=== PATIENT | female | born 1945 | race Caucasian/White ===

== ENCOUNTER 2021-09-19 11:52 | Inpatient (IN) | payer OTHER, SELFPAY ==
[2021-09-19] VITALS (24 sets, daily range): BP systolic 83–133; BP diastolic 45–97; PULSE 75–90; RESP 14–20; TEMP 36.3–37.3; O2SAT 87–98; BMI 28.0
--- NOTE | ~2021-09-19 | CT_ITS ---
EXAMINATION: CT brain wo con INDICATION: Weakness and hypotension COMPARISON: 07/04/2019 TECHNIQUE: Standard unenhanced head CT. The dose-length product (DLP) was 681.00 mGy-cm. The mA was a djusted according to patient size. Iterative reconstruction technique was employed. FINDINGS: There is no acute intraparenchymal hemorrhage. No evidence of mass lesion. No evidence of a cute infarction. There is moderate periventricular and subcortical hypodensity probably related to sm all vessel ischemic disease. There is moderate prominence of the sulci and ventricles related to cere bral atrophy. Intracranial calcified cerebral atherosclerosis is noted. There are no extra-axial meryl ections. There is no mass effect or midline shift. Changes in the globes are likely from ocular lens surgery. The visualized sinuses and mastoid air cells are well aerated. IMPRESSION: 1. No acute intracranial abnormality. 2. Age related findings. Reviewed, dictated and finalized at location B. OSCIENCE DIRECTOR NA
--- NOTE | 2021-09-19 12:11 | ECG_ITS ---
Measurements Intervals Anita Rate: 80 P: 51 VT: 154 QRS: 23 QRSD: 90 T: 50 QT: 371 QTc: 430 Interpretive Statements SINUS RHYTHM BASELINE ARTIFACT NONSPECIFIC ST AND T-WAVE ABNORMALITY ANTERIOR AND INFERIOR LEADS BORDERLINE ECG COMPARED TO ECG 07/04/2019 16:23:11 NO SIGNIFICANT CHANGES Electronically Signed On 09-19-2021 14:18:19 [employer] COUN[employer]ED[employer] by Justo June M.D.
--- NOTE | 2021-09-19 12:35 | ED.GENADULT ---
HPI - General Adult General Chief complaint: Weakness Stated complaint: lethargy/hypotensive Time Seen by Provider: 09/19/21 12:10 Source: EMS and RN notes reviewed Mode of arrival: EMS Limitations: dementia History of Present Illness HPI narrative: Patient is a 76-year-old female brought in by EMS from the care home due to low blood pressure and lethargy. Upon arrival patient's blood pressure is 133/97, she is alert and awake and oriented x1. Patient is a poor historian due to her history of dementia. She denies chest pain, shortness of breath, abdominal pain, nausea, vomiting, diarrhea, fever or chills. Related Data Allergies Allergy/AdvReac Type Severity Reaction Status Date / Time DANIEL Inhibitors Allergy Severe Anaphylactic Verified 09/19/21 13:04 Shock Penicillins Allergy Unknown Other Verified 09/19/21 13:04 Review of Systems Review of Systems: All systems reviewed & are unremarkable except as noted in HPI and below ROS unobtainable: Yes other (Dementia) PMFSH Past Medical History Medical History Alzheimer disease Anemia Anxiety Arthritis CHF (congestive heart failure) COPD (chronic obstructive pulmonary disease) Dementia Depression DM (diabetes mellitus) GERD (gastroesophageal reflux disease) H/O: HTN (hypertension) History of degenerative joint disease History of GI bleed History of pneumonia Hx of esophagitis Hx of hemorrhoids Hx of hiatal hernia Hx of Parkinson's disease Hx of seizure disorder Hx of transient ischemic attack (TIA) Hx: UTI (urinary tract infection) Hypercholesteremia Hypothyroid Psychoses Schizo affective schizophrenia Surgical History Surgical History Surgical history unknown Social History Social History Smoking status: Smoker, status unknown Exam Const: General: comfortable, no acute distress, well developed, alert and awake Orientation/consciousness: oriented to person and No confusion Limitations: no limitations Other: Frail HENMT: Head: normal to inspection, normocephalic and atraumatic Ears: hearing grossly normal bilaterally, TM normal on the right and TM normal on the left General nose exam: Normal external nose present, Normal nares present and No nasal discharge present Face and sinus: normal facial exam Mouth: Yes Normal oral and palatal mucosa present, Yes lip normal, Yes tongue normal and Yes oropharynx normal Throat: posterior oropharynx normal, tonsils normal and uvula midline Eyes: General: appearance normal, both eyes and all related structures Pupils: Equal, round and reactive pupils present EOM: EOMs intact bilaterally Neck: Neck: normal visual inspection, full ROM, no lymphadenopathy and no meningeal signs Chest: Chest palpation & inspection: normal inspection of the chest Resp: Effort & Inspection: normal respiratory effort, able to speak in complete sentences, no respiratory distress and not tachypneic Auscultation: clear to auscultation bilaterally, no crackles, no rales, no rhonchi and no wheezes Cardio: Rate: regular rate Rhythm: regular rhythm GI: Inspection: normal to inspection GI Palp: No abdominal tenderness, Yes Soft to palpation, No Tenderness to palpation present (GI), No Guarding due to palpation present (GI), No Rigid due to palpation and No Rebound tenderness present Auscultation: normal bowel sounds Skin: General skin exam: normal color, elasticity normal and turgor normal Neuro: General: oriented to person, tone normal, moves all extremities, Normal light touch and pain sensation, no meningeal signs and no focal motor deficits Cranial nerves: Yes Equal, round and reactive pupils present Speech: No Abnormal speech present Sensory Exam: No Sensory deficit (Neuro) Extrem: General: normal to inspection, full ROM and capillary refill normal Psych: Appearanc
[2021-09-19 12:53] LABS: Basophils Percent Auto 0.4 % (0.2-1.2); Eosinophils Absolute Auto 0.2 K/mm3 (0-0.3); Eosinophils Percent Auto 1.9 % (0-4.4); Hematocrit 36.4 % (37.0-47.0); Hemoglobin 11.6 g/dL (12.0-15.0); Immature Granulocyte Absolute 0.04 K/mm3 (0.00-0.031); Immature Granulocyte Percent A 0.5 % (0-0.5); Lymphocytes Absolute Auto 1.61 K/mm3 (0.9-3.2); Lymphocytes Percent Auto 20.5 % (18.3-44.2); Mean Corpuscular HGB Conc 31.9 g/dl (32-36); Mean Corpuscular Hemoglobin 32.4 pg (26-34); Mean Corpuscular Volume 101.7 fl (80-100); Mean Platelet Volume 10.2 fl (7.4-10.4); Monocytes Absolute Auto 0.7 K/mm3 (0.1-0.6); Monocytes Percent Auto 8.3 % (2.6-8.5); Neutrophils Absolute Auto 5.4 K/mm3 (1.3-6.7); Neutrophils Percent Auto 68.4 % (45.5-73.1); Platelet Count Result 200 k/mm3 (150-375); Red Blood Count 3.58 M/mm3 (4.2-5.4); Red Cell Distribution Width 13.6 % (11.5-14.5); White Blood Count 7.9 K/mm3 (4.5-10.0)
[2021-09-19 13:02] LABS: Anion Gap 7 mmol/L (8-16); Blood Urea Nitrogen 26 mg/dL (7-17); Calcium 9.2 mg/dL (8.4-10.2); Carbon Dioxide 29 mmol/L (22-30); Chloride 107 mmol/L (98-107); Estimated Glomerular Filt Rate 44; Glucose 94 mg/dL (65-110); Potassium 3.5 mmol/L (3.4-5.0); Sodium 143 mmol/L (137-145)
[2021-09-19 13:07] LABS: Add Urine Microscopic? YES; Appearance Urine Turbid (Clear); Bacteria Urine 2+ /hpf; Bilirubin Urine Negative (Negative); Blood Urine 1+ (Negative); Color Urine Yellow (Yellow); Glucose Urine UA Negative (Negative); Ketones Urine Negative (Negative); Leukocyte Esterase Ur 2+ LEU/UL (Negative); Nitrate Urine Positive (Negative); Protein Urine 2+ mg/dL (Negative); RBC Urine 21-50 /hpf (0-2); Specific Grav Ur 1.016 (1.001-1.035); Urobilinogen Urine Negative mg/dL (<2.0); WBC Urine >75 /hpf
[2021-09-19] MEDS: SODIUM CHLORIDE 0.9% IV 1,000 ML 999 ML IV CONT (13:07)
[2021-09-19 13:15] LABS: Troponin I < 0.012 ng/mL (0.000-0.034)
--- NOTE | 2021-09-19 18:41 | ADMGEN ---
This patient, Iliana Gutierrez I, was admitted to 3 [facility] Surg Room 322-01 at 1635. Patient/family oriented to hospital policies and general routines including ID bracelet, bed and alarms, visiting hours, pain management, procedures, bathroom and other care routines, personal items, smoking policy, room service/diet, and visiting hours. Information on how to activate the Rapid Response Team has been discussed. Patient/Family are encouraged to report perceived risks to care and to ask questions if they do not understand what they are told or what they should do.
--- NOTE | 2021-09-19 20:22 | PM.IMHP ---
H&P: HPI History of Present Illness Date/Time: Patient was placed observation status for expected length of stay less than 23 hours for management, will plan to re-evaluate tomorrow for improvement. 09/19/21 20:22 Chief Complaint: Lethargy Narrative: Ms. Gutierrez there is a 76-year-old female who was sent to the emergency room from home for hypotension and lethargy. Patient has a well-known history of dementia and is alert oriented to self only. Patient also has a Parkinson's, diabetes mellitus, COPD, GERD, iron deficiency anemia, and CVA. On evaluation in emergency room patient was screaming at the staff, which is apparently baseline for patient. Patient had a straight catheterization performed and patient was noted to have a significant urinary tract infection. I am unable to get any type of history from patient or review of systems secondary to her clinical condition. Review of Systems Review of Systems: Unable to obtain review of systems secondary to patient underlying dementia and confusion. [facility] Past Medical History Medical History Alzheimer disease Anemia Anxiety Arthritis CHF (congestive heart failure) COPD (chronic obstructive pulmonary disease) Dementia Depression DM (diabetes mellitus) GERD (gastroesophageal reflux disease) H/O: HTN (hypertension) History of degenerative joint disease History of GI bleed History of pneumonia Hx of esophagitis Hx of hemorrhoids Hx of hiatal hernia Hx of Parkinson's disease Hx of seizure disorder Hx of transient ischemic attack (TIA) Hx: UTI (urinary tract infection) Hypercholesteremia Hypothyroid Psychoses Schizo affective schizophrenia Surgical History Surgical History Surgical history unknown Social History Social History Spiritual care concerns: No Meds Home Medications and Allergies Home Medications Medication Instructions Recorded Confirmed Type acetaminophen 09/19/21 History aspirin 09/19/21 History carbidopa-levodopa tablet 09/19/21 History divalproex PO 09/19/21 History docusate sodium [Colace] PO 09/19/21 History fenofibrate micronized mg 09/19/21 History ferrous sulfate mg PO 09/19/21 History furosemide 09/19/21 History levothyroxine 09/19/21 History memantine [Namenda XR] mg PO 09/19/21 History metformin mg 09/19/21 History mirtazapine mg 09/19/21 History potassium chloride meq PO 09/19/21 History primidone mg PO 09/19/21 History quetiapine 09/19/21 History Allergies Allergy/AdvReac Type Severity Reaction Status Date / Time DANIEL Inhibitors Allergy Severe Anaphylactic Verified 09/19/21 13:04 Shock Penicillins Allergy Unknown Other Verified 09/19/21 13:04 Vital Signs Vital Signs - 24 hr 09/19/21 11:56 09/19/21 12:03 09/19/21 12:05 Temperature 36.3 C L Pulse Rate 80 76 78 Respiratory Rate 18 15 18 Blood Pressure 133/97 H 107/89 Pulse Oximetry 98 09/19/21 13:14 09/19/21 13:15 09/19/21 13:17 Temperature Pulse Rate 80 78 78 Respiratory Rate 18 18 16 Blood Pressure 124/50 L Pulse Oximetry 98 97 98 09/19/21 13:30 09/19/21 13:31 09/19/21 13:45 Temperature Pulse Rate 78 78 81 Respiratory Rate 14 17 20 Blood Pressure 120/53 L Pulse Oximetry 09/19/21 13:47 09/19/21 13:48 09/19/21 14:00 Temperature Pulse Rate 81 79 86 Respiratory Rate 18 20 17 Blood Pressure 117/67 Pulse Oximetry 87 L 90 09/19/21 14:01 09/19/21 14:15 09/19/21 14:16 Temperature Pulse Rate 82 82 82 Respiratory Rate 17 14 15 Blood Pressure 115/46 L 122/58 L Pulse Oximetry 98 09/19/21 15:02 09/19/21 15:17 09/19/21 15:31 Temperature Pulse Rate Respiratory Rate Blood Pressure 112/45 L 83/66 L 108/54 L Pulse Oximetry 09/19/21 15:46 09/19/21 15:50 09/19/21 16:37 Temperature Pulse Rate Respiratory Rat
[2021-09-19] MEDS: LACTATED RINGERS 1,000 ML 100 ML IV CONT (20:40)
[2021-09-20 00:52] VITALS: BP 109/54; PULSE 76; RESP 18; TEMP 36.2; O2SAT 95
[2021-09-20 05:36] VITALS: BP 122/57; PULSE 80; RESP 16; TEMP 36.7; O2SAT 95
--- NOTE | 2021-09-20 10:00 | PM.IMPN ---
Progress Note: A&P Assessment and Plan (1) Urinary tract infection: Qualifiers: Hematuria presence: without hematuria Urinary tract infection type: site unspecified Qualified Code(s): N39.0 - Urinary tract infection, site not specified Code(s): N39.0 - Urinary tract infection, site not specified Status: Acute Assessment and Plan: Urinalysis: Turbid,yellow, 2+ proteins, 1+ Blood, Nitrate positives, Leukocyte esterase 2+, WBC >75, Bacteria 2+ Continue IV Rocephin Urine culture pending Tailor antibiotics to culture results Trend urine output (2) Hypotension: Qualifiers: Hypotension type: unspecified hypotension type Qualified Code(s): I95.9 - Hypotension, unspecified Code(s): I95.9 - Hypotension, unspecified Status: Acute Assessment and Plan: BP 86/62 in the ed IV fluids given Does not seem to be on antihypertensives Trend BP Adjust therapy as indicated (3) Acute kidney injury: Code(s): N17.9 - Acute kidney failure, unspecified Status: Acute Assessment and Plan: Current BUN/Cr 23/1.20 baseline creatinine is 1.0 Could be secondary to acute tubular necrosis from hypotensive state and urinary tract infection gently hydrate patient Trend BUN and creatinine Avoid nephrotoxic medications (4) Acute metabolic encephalopathy: Code(s): G93.41 - Metabolic encephalopathy Status: Acute Assessment and Plan: Alzheimer and dementia at baseline Head Ct no acute intracranial abnormalities Seems to be at baseline this am Probably secondary to urinary tract infection IV antibiotics and hydration on board Trend mental status (5) Alzheimer's dementia: Code(s): G30.9 - Alzheimer's disease, unspecified; F02.80 - Dementia in other diseases classified elsewhere without behavioral disturbance Status: Acute Assessment and Plan: Continue namenda, Remeron, Seroquel Seems patient might have a little bit of Behavioral episodes however have not seen that Trend moods and behaviors Adjust therapy if indicated (6) Seizures: Code(s): R56.9 - Unspecified convulsions Status: Acute Assessment and Plan: Continue divalproex Trend for activity Time Spent With Patient Time with patient: Greater than 35 minutes Subjective Date/time seen: 09/20/21 1000 Interval history: 09/19/21 20:22 Narrative: Ms. Gutierrez there is a 76-year-old female who was sent to the emergency room from home for hypotension and lethargy. Patient has a well-known history of dementia and is alert oriented to self only. Patient also has a Parkinson's, diabetes mellitus, COPD, GERD, iron deficiency anemia, and CVA. On evaluation in emergency room patient was screaming at the staff, which is apparently baseline for patient. Patient had a straight catheterization performed and patient was noted to have a significant urinary tract infection. I am unable to get any type of history from patient or review of systems secondary to her clinical condition. Date/Time 09/20/21 1000 Patient was little raven today. She did tell me her name however she told me that she was at the hospital she stated that she has no pain and she is not having any other issues however not sure how reliable that is due to the patient's advanced dementia. Complete review of systems is able to be obtained due to patient's mental status Review of Systems Review of Systems: All systems reviewed & are unremarkable except as noted in HPI and below Exam Const: General: cooperative, no acute distress, well developed, alert, awake and tired appearing Nutritional Appearance: well nourished and overweight Orientation/consciousness: oriented to person and confusion Limitations: altered mental status HENMT: Head: normal to inspection Ears: hearing grossly normal bilaterally General nose exam: Normal
--- NOTE | 2021-09-20 10:00 | P.PNIM_ITS ---
Progress Note: A&P Assessment and Plan (1) Urinary tract infection: Qualifiers: Hematuria presence: without hematuria Urinary tract infection type: site unspecified Qualified Code(s): N39.0 - Urinary tract infection, site not specified Code(s): N39.0 - Urinary tract infection, site not specified Status: Acute Assessment and Plan: * Urinalysis: Turbid,yellow, 2+ proteins, 1+ Blood, Nitrate positives, Leukocyte esterase 2+, WBC >75, Bacteria 2+ * Continue IV Rocephin * Urine culture pending * Tailor antibiotics to culture results * Trend urine output (2) Hypotension: Qualifiers: Hypotension type: unspecified hypotension type Qualified Code(s): I95.9 - Hypotension, unspecified Code(s): I95.9 - Hypotension, unspecified Status: Acute Assessment and Plan: * BP 86/62 in the ed * IV fluids given * Does not seem to be on antihypertensives * Trend BP * Adjust therapy as indicated (3) Acute kidney injury: Code(s): N17.9 - Acute kidney failure, unspecified Status: Acute Assessment and Plan: * Current BUN/Cr 23/1.20 * baseline creatinine is 1.0 * Could be secondary to acute tubular necrosis from hypotensive state and urinary tract infection * gently hydrate patient * Trend BUN and creatinine * Avoid nephrotoxic medications (4) Acute metabolic encephalopathy: Code(s): G93.41 - Metabolic encephalopathy Status: Acute Assessment and Plan: * Alzheimer and dementia at baseline * Head Ct no acute intracranial abnormalities * Seems to be at baseline this am * Probably secondary to urinary tract infection * IV antibiotics and hydration on board * Trend mental status (5) Alzheimer's dementia: Code(s): G30.9 - Alzheimer's disease, unspecified; F02.80 - Dementia in other diseases classified elsewhere without behavioral disturbance Status: Acute Assessment and Plan: * Continue namenda, Remeron, Seroquel * Seems patient might have a little bit of Behavioral episodes however have not seen that * Trend moods and behaviors * Adjust therapy if indicated (6) Seizures: Code(s): R56.9 - Unspecified convulsions Status: Acute Assessment and Plan: * Continue divalproex * Trend for activity Time Spent With Patient Time with patient: Greater than 35 minutes Subjective Date/time seen: 09/20/21 1000 Interval history: 09/19/21 20:22 Narrative: Ms. Gutierrez there is a 76-year-old female who was sent to the emergency room from home for hypotension and lethargy. Patient has a well-known history of dementia and is alert oriented to self only. Patient also has a Parkinson's, diabetes mellitus, COPD, GERD, iron deficiency anemia, and CVA. On evaluation in emergency room patient was screaming at the staff, which is apparently baseline for patient. Patient had a straight catheterization performed and patient was noted to have a significant urinary tract infection. I am unable to get any type of history from patient or review of systems secondary to her clinical condition. Date/Time 09/20/21 1000 Patient was little soumyay today. She did tell me her name however she told me that she was at the hospital she stated that she has no pain and she is not having any other issues however not sure how reliable that is due to the patient's advanced dementia. Complete review of systems is able to be obtained
[2021-09-20] MEDS: ENOXAPARIN 40 MG/0.4 ML SYRINGE SUB-Q (10:15)
[2021-09-20 11:50] LABS: Glucose Point of Care 83 mg/dl (65-105)
[2021-09-20 11:52] VITALS: BP 104/42; PULSE 80; RESP 20; TEMP 36.1; O2SAT 92
[2021-09-20 13:46] LABS: Glucose Point of Care 88 mg/dl (65-105)
[2021-09-20 14:00] VITALS: BP 116/58; PULSE 82; RESP 18; TEMP 35.8; O2SAT 95
[2021-09-20] MEDS: LACTATED RINGERS 1,000 ML 100 ML IV CONT (15:19)
--- NOTE | 2021-09-20 15:33 | PC.NURSE ---
Attempted to give pt her meds that were newly prescribed. Pt was belligerent from the moment I walked into her room before I could even utter a word. She was cursing at me, calling me lennox names, and ordered me to get the hell out of here! I attempted to explain to pt that I needed to give her medications that would make her feel better. I tried to pass the meds in applesauce and/or pudding but pt continued with the lennox comments. Pt continued to be belligerent, adamantly refusing to take the meds no matter how presented. The ORNAMENTAL METAL WORKER informed me that pt pocketed her lunch in the sides of pt's mouth and was belligerent with her as well.
[2021-09-20 16:00] VITALS: BP 111/57; PULSE 74; RESP 18; TEMP 35.8; O2SAT 96
[2021-09-20 16:21] LABS: Glucose Point of Care 103 mg/dl (65-105)
[2021-09-20] MEDS: CARBIDOPA/LEVODOPA 10/100 MG TABLET 1 TABLET PO (17:00)
[2021-09-20] MEDS: PRIMIDONE 250 MG TABLET PO (17:00)
[2021-09-20] MEDS: DOCUSATE SODIUM 100 MG CAPSULE PO (17:00)
[2021-09-20] MEDS: FERROUS SULFATE 324 MG TABLET PO (17:00)
[2021-09-20] MEDS: DIVALPROEX SODIUM SPRINKLE 125 MG CAP.DR PO (17:00)
[2021-09-20] MEDS: QUEtiapine FUMARATE 100 MG TABLET 200 MG PO (20:20)
[2021-09-20 21:15] VITALS: BP 96/42; PULSE 75; RESP 16; TEMP 36.2; O2SAT 94
[2021-09-21 05:38] VITALS: BP 93/46; PULSE 64; RESP 17; TEMP 36.1; O2SAT 95
[2021-09-21] MEDS: LEVOTHYROXINE SODIUM 50 MCG TABLET PO (06:12)
[2021-09-21 07:05] LABS: Alanine Aminotransferase 12 U/L (4-35); Albumin Level 3.4 g/dL (3.5-5.1); Alkaline Phosphatase 50 U/L (38-126); Anion Gap 5 mmol/L (8-16); Aspartate Amino Transferase 31 U/L (14-36); Bilirubin,Total 0.4 mg/dL (0.2-1.3); Blood Urea Nitrogen 18 mg/dL (7-17); Calcium 8.6 mg/dL (8.4-10.2); Carbon Dioxide 25 mmol/L (22-30); Chloride 108 mmol/L (98-107); Estimated CRCL calculation 40 ml/min; Estimated Glomerular Filt Rate 54; Glucose 88 mg/dL (65-110); Potassium 3.6 mmol/L (3.4-5.0); Sodium 138 mmol/L (137-145)
[2021-09-21 07:11] LABS: Basophils Percent Auto 0.4 % (0.2-1.2); Eosinophils Absolute Auto 0.2 K/mm3 (0-0.3); Hematocrit 33.2 % (37.0-47.0); Hemoglobin 10.5 g/dL (12.0-15.0); Immature Granulocyte Absolute 0.03 K/mm3 (0.00-0.031); Immature Granulocyte Percent A 0.5 % (0-0.5); Lymphocytes Absolute Auto 1.59 K/mm3 (0.9-3.2); Lymphocytes Percent Auto 28.2 % (18.3-44.2); Mean Corpuscular HGB Conc 31.6 g/dl (32-36); Mean Corpuscular Hemoglobin 31.7 pg (26-34); Mean Corpuscular Volume 100.3 fl (80-100); Mean Platelet Volume 9.9 fl (7.4-10.4); Monocytes Absolute Auto 0.6 K/mm3 (0.1-0.6); Monocytes Percent Auto 10.5 % (2.6-8.5); Neutrophils Absolute Auto 3.2 K/mm3 (1.3-6.7); Neutrophils Percent Auto 57.4 % (45.5-73.1); Platelet Count Result 224 k/mm3 (150-375); Red Blood Count 3.31 M/mm3 (4.2-5.4); Red Cell Distribution Width 13.5 % (11.5-14.5); White Blood Count 5.6 K/mm3 (4.5-10.0)
--- NOTE | 2021-09-21 08:00 | P.PNIM_ITS ---
Progress Note: A&P Assessment and Plan (1) Urinary tract infection: Qualifiers: Hematuria presence: without hematuria Urinary tract infection type: site unspecified Qualified Code(s): N39.0 - Urinary tract infection, site not specified Code(s): N39.0 - Urinary tract infection, site not specified Status: Acute Assessment and Plan: * Urinalysis: Turbid,yellow, 2+ proteins, 1+ Blood, Nitrate positives, Leukocyte esterase 2+, WBC >75, Bacteria 2+ * Continue IV Rocephin, will need to switch to PO antibiotics * Urine culture grew Ecoli * Tailor antibiotics to culture results * Trend urine output (2) Hypotension: Qualifiers: Hypotension type: unspecified hypotension type Qualified Code(s): I95.9 - Hypotension, unspecified Code(s): I95.9 - Hypotension, unspecified Status: Acute Assessment and Plan: * BP 86/62 in the ed * Current BP is 93/46 * IV fluids given * Does not seem to be on antihypertensives * Trend BP * Adjust therapy as indicated (3) Acute kidney injury: Code(s): N17.9 - Acute kidney failure, unspecified Status: Acute Assessment and Plan: * Current BUN/Cr 18/1.00, back at baseline * baseline creatinine is 1.0 * Could be secondary to acute tubular necrosis from hypotensive state and urinary tract infection * gently hydrate patient * Trend BUN and creatinine * Avoid nephrotoxic medications (4) Acute metabolic encephalopathy: Code(s): G93.41 - Metabolic encephalopathy Status: Acute Assessment and Plan: * Alzheimer and dementia at baseline * Head Ct no acute intracranial abnormalities * Seems to be at baseline this am * Probably secondary to urinary tract infection * IV antibiotics and hydration on board * Trend mental status (5) Alzheimer's dementia: Code(s): G30.9 - Alzheimer's disease, unspecified; F02.80 - Dementia in other diseases classified elsewhere without behavioral disturbance Status: Acute Assessment and Plan: * Continue namenda, Remeron, Seroquel * Seems patient might have a little bit of Behavioral episodes however have not seen that * Trend moods and behaviors * Adjust therapy if indicated (6) Seizures: Code(s): R56.9 - Unspecified convulsions Status: Acute Assessment and Plan: * Continue divalproex * Trend for activity Subjective Date/time seen: 09/21/21 08:00 Interval history: 09/19/21 20:22 Narrative: Ms. Gutierrez there is a 76-year-old female who was sent to the emergency room from home for hypotension and lethargy. Patient has a well-known history of dementia and is alert oriented to self only. Patient also has a Parkinson's, diabetes mellitus, COPD, GERD, iron deficiency anemia, and CVA. On evaluation in emergency room patient was screaming at the staff, which is apparently baseline for patient. Patient had a straight catheterization performed and patient was noted to have a significant urinary tract infection. I am unable to get any type of history from patient or review of systems secondary to her clinical condition. Date/Time 09/20/21 1000 Patient was little feisty today. She did tell me her name however she told me that she was at the hospital she stated that she has no pain and she is not having any other issues however not sure how reliable that is due to the patient's advanced dementia. Complete review of systems is able to be
--- NOTE | 2021-09-21 08:00 | PM.IMPN ---
Progress Note: A&P Assessment and Plan (1) Urinary tract infection: Qualifiers: Hematuria presence: without hematuria Urinary tract infection type: site unspecified Qualified Code(s): N39.0 - Urinary tract infection, site not specified Code(s): N39.0 - Urinary tract infection, site not specified Status: Acute Assessment and Plan: Urinalysis: Turbid,yellow, 2+ proteins, 1+ Blood, Nitrate positives, Leukocyte esterase 2+, WBC >75, Bacteria 2+ Continue IV Rocephin, will need to switch to PO antibiotics Urine culture grew Ecoli Tailor antibiotics to culture results Trend urine output (2) Hypotension: Qualifiers: Hypotension type: unspecified hypotension type Qualified Code(s): I95.9 - Hypotension, unspecified Code(s): I95.9 - Hypotension, unspecified Status: Acute Assessment and Plan: BP 86/62 in the ed Current BP is 93/46 IV fluids given Does not seem to be on antihypertensives Trend BP Adjust therapy as indicated (3) Acute kidney injury: Code(s): N17.9 - Acute kidney failure, unspecified Status: Acute Assessment and Plan: Current BUN/Cr 18/1.00, back at baseline baseline creatinine is 1.0 Could be secondary to acute tubular necrosis from hypotensive state and urinary tract infection gently hydrate patient Trend BUN and creatinine Avoid nephrotoxic medications (4) Acute metabolic encephalopathy: Code(s): G93.41 - Metabolic encephalopathy Status: Acute Assessment and Plan: Alzheimer and dementia at baseline Head Ct no acute intracranial abnormalities Seems to be at baseline this am Probably secondary to urinary tract infection IV antibiotics and hydration on board Trend mental status (5) Alzheimer's dementia: Code(s): G30.9 - Alzheimer's disease, unspecified; F02.80 - Dementia in other diseases classified elsewhere without behavioral disturbance Status: Acute Assessment and Plan: Continue namenda, Remeron, Seroquel Seems patient might have a little bit of Behavioral episodes however have not seen that Trend moods and behaviors Adjust therapy if indicated (6) Seizures: Code(s): R56.9 - Unspecified convulsions Status: Acute Assessment and Plan: Continue divalproex Trend for activity Subjective Date/time seen: 09/21/21 08:00 Interval history: 09/19/21 20:22 Narrative: Ms. Gutierrez there is a 76-year-old female who was sent to the emergency room from home for hypotension and lethargy. Patient has a well-known history of dementia and is alert oriented to self only. Patient also has a Parkinson's, diabetes mellitus, COPD, GERD, iron deficiency anemia, and CVA. On evaluation in emergency room patient was screaming at the staff, which is apparently baseline for patient. Patient had a straight catheterization performed and patient was noted to have a significant urinary tract infection. I am unable to get any type of history from patient or review of systems secondary to her clinical condition. Date/Time 09/20/21 1000 Patient was little feisty today. She did tell me her name however she told me that she was at the hospital she stated that she has no pain and she is not having any other issues however not sure how reliable that is due to the patient's advanced dementia. Complete review of systems is able to be obtained due to patient's mental status Date/Time 09/21/21 0800 Patient was lying in bed. Patient stated that she was getting fed. She has been eating well and states that she has no problems with urination, shortness of breath, nausea, vomiting, diarrhea, constipation, Chest pain, fevers, sweats, chills. Patient stated that she is ready to go however still waiting for sensitivities. Review of Systems Review of Systems: All systems reviewed & are unremarkable except as noted in HPI and
[2021-09-21] MEDS: ENOXAPARIN 40 MG/0.4 ML SYRINGE SUB-Q (08:16)
[2021-09-21] MEDS: MEMANTINE HCL XR 28 MG CAP PO (08:16)
[2021-09-21] MEDS: DOCUSATE SODIUM 100 MG CAPSULE PO ×2 (08:17→17:11)
[2021-09-21] MEDS: CARBIDOPA/LEVODOPA 10/100 MG TABLET 1 TABLET PO ×3 (08:17→17:10)
[2021-09-21] MEDS: MIRTAZAPINE 7.5 MG TABLET PO (08:17)
[2021-09-21] MEDS: POTASSIUM CHLORIDE 10 MEQ TABLET.ER PO (08:17)
[2021-09-21] MEDS: PRIMIDONE 250 MG TABLET PO ×2 (08:17→17:11)
[2021-09-21] MEDS: FERROUS SULFATE 324 MG TABLET PO ×3 (08:17→17:11)
[2021-09-21] MEDS: ASPIRIN 81 MG CHEWABLE TABLET PO (08:17)
[2021-09-21] MEDS: FUROSEMIDE 20 MG TABLET PO (08:17)
[2021-09-21] MEDS: DIVALPROEX SODIUM SPRINKLE 125 MG CAP.DR PO ×2 (08:18→17:10)
[2021-09-21] MEDS: LACTATED RINGERS 1,000 ML 100 ML IV CONT ×2 (12:17→22:56)
[2021-09-21 14:00] VITALS: BP 94/42; PULSE 66; RESP 16; TEMP 36.9; O2SAT 96
[2021-09-21] MEDS: QUEtiapine FUMARATE 100 MG TABLET 200 MG PO (20:31)
[2021-09-21 22:00] VITALS: BP 119/53; PULSE 74; RESP 18; TEMP 36.6; O2SAT 97
[2021-09-22] VITALS: BP 126/61; PULSE 71; RESP 18; TEMP 35.9; O2SAT 100
--- NOTE | 2021-09-22 01:56 | PC.NURSE ---
Daylight Savings Time For Daylight Savings Time Ending in the Fall - Clocks are moved back. For Daylight Savings Time Beginning in the Spring - Clocks are moved ahead. For [facility], the time of change occurs at 0200 hrs. Time is taken from the fine dining server. This entry on the patient's chart recognizes the change in time reflected during documentation. Example: 2 entries for vital signs may be charted for 0200 hrs.
[2021-09-22 04:00] VITALS: BP 137/55; PULSE 71; RESP 18; TEMP 36.1; O2SAT 95
[2021-09-22] MEDS: LEVOTHYROXINE SODIUM 50 MCG TABLET PO (05:46)
[2021-09-22 06:26] LABS: Basophils Percent Auto 0.7 % (0.2-1.2); Eosinophils Absolute Auto 0.2 K/mm3 (0-0.3); Eosinophils Percent Auto 3.2 % (0-4.4); Hematocrit 33.3 % (37.0-47.0); Hemoglobin 10.6 g/dL (12.0-15.0); Immature Granulocyte Absolute 0.06 K/mm3 (0.00-0.031); Immature Granulocyte Percent A 1.1 % (0-0.5); Lymphocytes Absolute Auto 1.51 K/mm3 (0.9-3.2); Lymphocytes Percent Auto 26.8 % (18.3-44.2); Mean Corpuscular HGB Conc 31.8 g/dl (32-36); Mean Corpuscular Hemoglobin 31.6 pg (26-34); Mean Corpuscular Volume 99.4 fl (80-100); Mean Platelet Volume 10.7 fl (7.4-10.4); Monocytes Absolute Auto 0.6 K/mm3 (0.1-0.6); Monocytes Percent Auto 9.9 % (2.6-8.5); Neutrophils Absolute Auto 3.3 K/mm3 (1.3-6.7); Neutrophils Percent Auto 58.3 % (45.5-73.1); Platelet Count Result 212 k/mm3 (150-375); Red Blood Count 3.35 M/mm3 (4.2-5.4); Red Cell Distribution Width 13.5 % (11.5-14.5); White Blood Count 5.6 K/mm3 (4.5-10.0)
[2021-09-22 07:20] LABS: Alanine Aminotransferase 10 U/L (4-35); Albumin Level 2.9 g/dL (3.5-5.1); Alkaline Phosphatase 47 U/L (38-126); Anion Gap 4 mmol/L (8-16); Aspartate Amino Transferase 29 U/L (14-36); Bilirubin,Total 0.2 mg/dL (0.2-1.3); Blood Urea Nitrogen 13 mg/dL (7-17); Calcium 8.2 mg/dL (8.4-10.2); Carbon Dioxide 27 mmol/L (22-30); Chloride 108 mmol/L (98-107); Estimated CRCL calculation 44 ml/min; Estimated Glomerular Filt Rate > 60; Glucose 89 mg/dL (65-110); Magnesium 1.8 mg/dL (1.6-2.3); Potassium 3.4 mmol/L (3.4-5.0); Sodium 139 mmol/L (137-145)
[2021-09-22] MEDS: CEFDINIR 300 MG CAPSULE PO (08:32)
[2021-09-22] MEDS: MEMANTINE HCL XR 28 MG CAP PO (08:32)
[2021-09-22] MEDS: PRIMIDONE 250 MG TABLET PO (08:32)
[2021-09-22] MEDS: ASPIRIN 81 MG CHEWABLE TABLET PO (08:32)
[2021-09-22] MEDS: FERROUS SULFATE 324 MG TABLET PO ×2 (08:32→11:58)
[2021-09-22] MEDS: MIRTAZAPINE 7.5 MG TABLET PO (08:32)
[2021-09-22] MEDS: DIVALPROEX SODIUM SPRINKLE 125 MG CAP.DR PO (08:32)
[2021-09-22] MEDS: CARBIDOPA/LEVODOPA 10/100 MG TABLET 1 TABLET PO ×2 (08:32→11:59)
[2021-09-22] MEDS: DOCUSATE SODIUM 100 MG CAPSULE PO (08:33)
[2021-09-22] MEDS: POTASSIUM CHLORIDE 10 MEQ TABLET.ER PO (08:33)
[2021-09-22] MEDS: ENOXAPARIN 40 MG/0.4 ML SYRINGE SUB-Q (08:34)
--- NOTE | 2021-09-22 11:00 | P.DS_ITS ---
DS: Admitting Diagnosis Discharge Date 09/22/21 1100 Admitting Diagnosis UTI DS: Discharge Diagnosis Discharge Diagnosis (1) Urinary tract infection: Qualifiers: Hematuria presence: without hematuria Urinary tract infection type: site unspecified Qualified Code(s): N39.0 - Urinary tract infection, site not specified Code(s): N39.0 - Urinary tract infection, site not specified Status: Acute Assessment and Plan: * Urinalysis: Turbid,yellow, 2+ proteins, 1+ Blood, Nitrate positives, Leukocyte esterase 2+, WBC >75, Bacteria 2+ * Continue IV Rocephin, will need to switch to PO antibiotics * Urine culture grew Ecoli, susceptibilities indicate sensitive to amoxicillin * Tailor antibiotics to culture results * Trend urine output (2) Hypotension: Qualifiers: Hypotension type: unspecified hypotension type Qualified Code(s): I95.9 - Hypotension, unspecified Code(s): I95.9 - Hypotension, unspecified Status: Acute Assessment and Plan: * Resolved * BP 86/62 in the ed * Current BP is 137/55 * IV fluids given * Does not seem to be on antihypertensives * Trend BP * Adjust therapy as indicated (3) Acute kidney injury: Code(s): N17.9 - Acute kidney failure, unspecified Status: Acute Assessment and Plan: * Current BUN/Cr 18/1.00, back at baseline * baseline creatinine is 1.0 * Could be secondary to acute tubular necrosis from hypotensive state and urinary tract infection * gently hydrate patient * Trend BUN and creatinine * Avoid nephrotoxic medications (4) Acute metabolic encephalopathy: Code(s): G93.41 - Metabolic encephalopathy Status: Acute Assessment and Plan: * Alzheimer and dementia at baseline * Head Ct no acute intracranial abnormalities * Seems to be at baseline this am * Probably secondary to urinary tract infection * IV antibiotics and hydration on board * Trend mental status (5) Alzheimer's dementia: Code(s): G30.9 - Alzheimer's disease, unspecified; F02.80 - Dementia in other diseases classified elsewhere without behavioral disturbance Status: Acute Assessment and Plan: * Continue namenda, Remeron, Seroquel * Seems patient might have a little bit of Behavioral episodes however have not seen that * Trend moods and behaviors * Adjust therapy if indicated (6) Seizures: Code(s): R56.9 - Unspecified convulsions Status: Acute Assessment and Plan: * Continue divalproex * Trend for activity DS: Summary Hospital Course Hospital Course: Patient is a 76-year-old female with a past history Parkinson's, diabetes, COPD, GERD, iron deficient anemia, CVA who presented the emergency room for altered status, hypotension and lethargy. UA was performed and showed positive nitrates with leukocyte esterase and white blood cell count greater than 75 with bacteria 2+. Urine culture did back E coli. Patient was started on IV ceftriaxone in mental status is back to baseline. Patient was noted to be hypotensive with a blood pressure ready to 86/62 in the ED. patient was given IV fluids it which seems to have resolved the issue and current blood pressure is stable. Patient has been eating well and states that she feels well today. Patient is alert oriented x1 which seems to be her baseline. Patient is stable for discharge is ready to go today. Patient states that she is feeling great is ex
--- NOTE | 2021-09-22 11:00 | PM.DS ---
DS: Admitting Diagnosis Discharge Date 09/22/21 1100 Admitting Diagnosis UTI DS: Discharge Diagnosis Discharge Diagnosis (1) Urinary tract infection: Qualifiers: Hematuria presence: without hematuria Urinary tract infection type: site unspecified Qualified Code(s): N39.0 - Urinary tract infection, site not specified Code(s): N39.0 - Urinary tract infection, site not specified Status: Acute Assessment and Plan: Urinalysis: Turbid,yellow, 2+ proteins, 1+ Blood, Nitrate positives, Leukocyte esterase 2+, WBC >75, Bacteria 2+ Continue IV Rocephin, will need to switch to PO antibiotics Urine culture grew Ecoli, susceptibilities indicate sensitive to amoxicillin Tailor antibiotics to culture results Trend urine output (2) Hypotension: Qualifiers: Hypotension type: unspecified hypotension type Qualified Code(s): I95.9 - Hypotension, unspecified Code(s): I95.9 - Hypotension, unspecified Status: Acute Assessment and Plan: Resolved BP 86/62 in the ed Current BP is 137/55 IV fluids given Does not seem to be on antihypertensives Trend BP Adjust therapy as indicated (3) Acute kidney injury: Code(s): N17.9 - Acute kidney failure, unspecified Status: Acute Assessment and Plan: Current BUN/Cr 18/1.00, back at baseline baseline creatinine is 1.0 Could be secondary to acute tubular necrosis from hypotensive state and urinary tract infection gently hydrate patient Trend BUN and creatinine Avoid nephrotoxic medications (4) Acute metabolic encephalopathy: Code(s): G93.41 - Metabolic encephalopathy Status: Acute Assessment and Plan: Alzheimer and dementia at baseline Head Ct no acute intracranial abnormalities Seems to be at baseline this am Probably secondary to urinary tract infection IV antibiotics and hydration on board Trend mental status (5) Alzheimer's dementia: Code(s): G30.9 - Alzheimer's disease, unspecified; F02.80 - Dementia in other diseases classified elsewhere without behavioral disturbance Status: Acute Assessment and Plan: Continue namenda, Remeron, Seroquel Seems patient might have a little bit of Behavioral episodes however have not seen that Trend moods and behaviors Adjust therapy if indicated (6) Seizures: Code(s): R56.9 - Unspecified convulsions Status: Acute Assessment and Plan: Continue divalproex Trend for activity DS: Summary Hospital Course Hospital Course: Patient is a 76-year-old female with a past history Parkinson's, diabetes, COPD, GERD, iron deficient anemia, CVA who presented the emergency room for altered status, hypotension and lethargy. UA was performed and showed positive nitrates with leukocyte esterase and white blood cell count greater than 75 with bacteria 2+. Urine culture did back E coli. Patient was started on IV ceftriaxone in mental status is back to baseline. Patient was noted to be hypotensive with a blood pressure ready to 86/62 in the ED. patient was given IV fluids it which seems to have resolved the issue and current blood pressure is stable. Patient has been eating well and states that she feels well today. Patient is alert oriented x1 which seems to be her baseline. Patient is stable for discharge is ready to go today. Patient states that she is feeling great is excited to go home. She denies any chest pain, shortness of breath, nausea, vomiting, diarrhea, constipation, weakness, fatigue. Status at Discharge Functional status at discharge: bed bound Overall status at discharge: patient is progressing back to baseline Time Spent with Patient Time attestation: Total time spent providing and/or coordinating discharge services: 48 minutes Time spent: Greater than 30 minutes Specific discharge activities: Diagnostic testing, chart review, developing a treatm
[2021-09-22 12:43] LABS: EDCOVIDSCREEN Negative (Negative)
[2021-09-22 14:00] VITALS: BP 110/58; PULSE 68; RESP 17; TEMP 35.8; O2SAT 96
== END 2021-09-22 14:10 | DRG 689 ==
LOC: ANHED 14:33 → ANH3MEDSUR 16:11
PROVIDERS: Admitting Provider Hospitalist; Emergency Provider Emergency Medicine; PCP Internal Medicine; Visit Provider Nurse Practitioner
DX: N39.0 Urinary tract infection, site not specified (principal); N17.0 Acute kidney failure with tubular necrosis; G93.41 Metabolic encephalopathy; B96.20 Unspecified Escherichia coli [E. coli] as the cause of diseases classified elsewhere; I95.9 Hypotension, unspecified; Z20.822 Contact with and (suspected) exposure to COVID-19; G30.9 Alzheimer's disease, unspecified; F02.80 Dementia in other diseases classified elsewhere, unspecified severity, without behavioral disturbance, psychotic disturbance, mood disturbance, and anxiety; I50.9 Heart failure, unspecified; G40.909 Epilepsy, unspecified, not intractable, without status epilepticus; E11.9 Type 2 diabetes mellitus without complications; G20 Parkinson's disease; J44.9 Chronic obstructive pulmonary disease, unspecified; K21.9 Gastro-esophageal reflux disease without esophagitis; D50.9 Iron deficiency anemia, unspecified; M19.90 Unspecified osteoarthritis, unspecified site; F25.9 Schizoaffective disorder, unspecified; E03.9 Hypothyroidism, unspecified; Z86.73 Personal history of transient ischemic attack (TIA), and cerebral infarction without residual deficits
CPT/HCPCS: 36415; 70450; 80048; 80053; 81001; 82948; 83735; 84484; 85025; 87077; 87086; 87186; 87426; 93005; 96361; 96365; 96372; 99285; A9270; C9803; G0378; J0696; J1650; J7030; J7120

== ENCOUNTER 2022-04-27 19:16 | Emergency (ER) | payer MEDICARE, MEDICAID, SELFPAY ==
--- NOTE | ~2022-04-27 | CT_ITS ---
EXAMINATION: CT cervical spine wo con DATE: 04/27/2022 20:32 INDICATION: FALL TECHNIQUE: Computed tomography (CT) of the cervical spine was performed without intravenous contrast. Automated exposure control and iterative reconstruction technique were employed. The dose-length pro duct was 187.89 mGy-cm. COMPARISON: None FINDINGS: Vertebral Body Alignment: Intact. Cervical spine straightening as can occur from spasm or positioning . Craniocervical and atlantoaxial alignment: Moderate degenerative change. Alignment intact. Osseous structures/fracture: No evidence of a lytic or blastic process in the visualized spine. No e vidence of acute fracture. Cervical soft tissues: The paraspinal soft tissues planes are maintained. Apical pleural scarring. [place] bcentimeter right thyroid lobe hypodensity that requires no additional evaluation. Degenerative changes: Multilevel degenerative disc disease, severe at C4-5 through C6-7. Severe centr al canal narrowing at C6-7. Severe right neural foraminal narrowing at C6-7. Multilevel facet arthrop athy. IMPRESSION: No acute fracture or traumatic malalignment in the cervical spine. Reviewed, dictated and finalized at location K.
--- NOTE | ~2022-04-27 | CT_ITS ---
EXAMINATION: CT brain wo con DATE: 04/27/2022 20:32 INDICATION: FALL out of wheelchait, hematoma over R eye . TECHNIQUE: Computed tomography (CT) of the head was performed without intravenous contrast. The mA wa s adjusted according to patient size. Iterative reconstruction technique was employed. The dose-lengt h product was 605.33 mGy-cm. COMPARISON: 09/19/2021 FINDINGS: No acute intracranial hemorrhage or extra-axial fluid collection. No hydrocephalus, mass, or herniation. No acute ischemic infarct. Unremarkable dural venous sinus attenuation. No acute osseous abnormality. Large left frontal hematoma. On comparing osseous defect in the right lateral maxillary sinus wall with herniation of adjacent mas ticator space fat, unchanged. Small retention cyst or polyp in the medial left maxillary sinus. Mild mucosal thickening in the ethmoid air cells. The remaining aerated spaces are clear. Moderate atrophy and mild chronic white matter change. Old bilateral basal ganglia lacunar infarcts. Atherosclerotic intracranial calcifications. IMPRESSION: No acute intracranial process. Reviewed, dictated and finalized at location K.
[2022-04-27 19:16] VITALS: BP 148/101; PULSE 82; RESP 20; TEMP 36.2; O2SAT 96
--- NOTE | 2022-04-27 19:55 | ED.FALL ---
HPI - Fall General Chief Complaint: Fall Stated Complaint: fall out of wc hematoma to head Time Seen by Provider: 04/27/22 19:52 Source: EMS Mode of arrival: EMS Limitations: dementia History of Present Illness HPI Narrative: Patient is 77 years old white female came by ambulance from intermediate complaining of a fall off the wheelchair with right forehead hematoma, no loss of consciousness. Patient is awake, oriented to 1, at baseline. Patient on aspirin. Related Data Home Medications Medication Instructions Recorded Confirmed acetaminophen 325 mg tablet 650 mg PO Q4-6H PRN Pain (Scale 09/19/21 09/19/21 Score 1-3) aspirin 81 mg chewable tablet 81 mg PO DAILY 09/19/21 09/19/21 carbidopa 10 mg-levodopa 100 mg 10 - 100 tablet PO TID 09/19/21 09/19/21 tablet divalproex 125 mg capsule,delayed 125 mg PO BID 09/19/21 09/19/21 release sprinkle docusate sodium 100 mg capsule 100 mg PO BID 09/19/21 09/19/21 (Colace) fenofibrate micronized 67 mg 67 mg PO DAILY 09/19/21 09/19/21 capsule ferrous sulfate 325 mg (65 mg 325 mg PO TID 09/19/21 09/19/21 iron) capsule,extended release furosemide 20 mg tablet 20 mg PO DAILY 09/19/21 09/19/21 levothyroxine 50 mcg tablet 50 mcg PO DAILY 09/19/21 09/19/21 memantine 28 mg capsule 28 mg PO DAILY 09/19/21 09/19/21 sprinkle,extended release 24hr (Namenda XR) metformin 500 mg tablet 500 mg PO DAILY 09/19/21 09/19/21 mirtazapine 7.5 mg tablet 7.5 mg PO DAILY 09/19/21 09/19/21 potassium chloride 10 mEq 10 meq PO DAILY 09/19/21 09/19/21 tablet,extended release primidone 250 mg/5 mL oral 250 mg PO BID 09/19/21 09/19/21 suspension quetiapine 200 mg tablet 200 mg PO HS 09/19/21 09/19/21 Allergies Allergy/AdvReac Type Severity Reaction Status Date / Time DANIEL Inhibitors Allergy Severe Anaphylactic Verified 09/19/21 13:04 Shock Penicillins Allergy Unknown Other Verified 09/19/21 13:04 Review of Systems Review of Systems: All systems reviewed & are unremarkable except as noted in HPI and below PMFSH Past Medical History Medical History Alzheimer disease Anemia Anxiety Arthritis CHF (congestive heart failure) COPD (chronic obstructive pulmonary disease) Dementia Depression DM (diabetes mellitus) GERD (gastroesophageal reflux disease) H/O: HTN (hypertension) History of degenerative joint disease History of GI bleed History of pneumonia Hx of esophagitis Hx of hemorrhoids Hx of hiatal hernia Hx of Parkinson's disease Hx of seizure disorder Hx of transient ischemic attack (TIA) Hx: UTI (urinary tract infection) Hypercholesteremia Hypothyroid Psychoses Schizo affective schizophrenia Surgical History Surgical History Surgical history unknown Social History Social History Spiritual care concerns: No Exam Narrative: General appearance: Well-developed, well-nourished Skin: Normal color Head: Right forehead hematoma Eyes: Clear conjunctiva ENT: Oropharynx normal, ears normal, nose normal Neck: C-collar Chest and respiratory: Airway patent, no respiratory distress, no accessory muscle use Heart: Regular rate/rhythm Abdomen: Soft, nontender, no organomegaly, quiet bowel sounds Musculoskeletal: Limited range of motion because of stiffness all over, nontender back Neurologic: Alert and disoriented x3 , no gross motor deficit Course Vital Signs Vital signs: Vital Signs Temperature 36.2 C L 04/27/22 19:16 Pulse Rate 82 04/27/22 19:16 Respiratory Rate 20 04/27/22 19:16 Blood Pressure 148/101 H
[2022-04-27 21:01] VITALS: BP 138/60; PULSE 82; RESP 19; O2SAT 97
[2022-04-27 21:16] VITALS: BP 133/59; PULSE 82; RESP 17; O2SAT 96
--- NOTE | 2022-04-27 21:20 | PC.NURSE ---
Nae called times 2 with no answer. C collar removed due to negative CT.
--- NOTE | 2022-04-27 21:27 | PC.NURSE ---
No answer at [facility], after multiple calls from different phones. Called the [place] [employer] Nonemergency line and requested they do a welfare check. Per dispatcher, facility does not like to answer phone, and she will send an officer out to facility in attempt to make contact.
--- NOTE | 2022-04-27 21:42 | PC.NURSE ---
MIREYA Angela gave report to Tay at [facility] after he returned our multiple calls to give report.
[2022-04-27 22:16] VITALS: BP 119/62; PULSE 79; RESP 18; O2SAT 96
[2022-04-27 22:31] VITALS: BP 126/57; PULSE 81; RESP 18; O2SAT 97
--- NOTE | 2022-04-27 23:31 | PC.NURSE ---
Report received, assumed care of patient at this time.
[2022-04-28 00:16] VITALS: BP 123/61; PULSE 84; RESP 19; O2SAT 94
[2022-04-28 00:17] VITALS: BP 123/67; PULSE 81; RESP 19; O2SAT 94
[2022-04-28 01:21] VITALS: BP 111/55; PULSE 83; RESP 16; TEMP 36.8; O2SAT 99
--- NOTE | 2022-04-28 01:21 | PC.NURSE ---
EMS here to transport patient back home.
== END 2022-04-28 01:22 ==
PROVIDERS: Emergency Provider Emergency Medicine; PCP Internal Medicine
DX: S00.83XA Contusion of other part of head, initial encounter (principal); G30.9 Alzheimer's disease, unspecified; F02.80 Dementia in other diseases classified elsewhere, unspecified severity, without behavioral disturbance, psychotic disturbance, mood disturbance, and anxiety; I50.9 Heart failure, unspecified; J44.9 Chronic obstructive pulmonary disease, unspecified; E11.9 Type 2 diabetes mellitus without complications; G20 Parkinson's disease; G40.909 Epilepsy, unspecified, not intractable, without status epilepticus; E78.00 Pure hypercholesterolemia, unspecified; E03.9 Hypothyroidism, unspecified; K21.9 Gastro-esophageal reflux disease without esophagitis; M19.90 Unspecified osteoarthritis, unspecified site; F41.9 Anxiety disorder, unspecified; F32.A Depression, unspecified; F20.9 Schizophrenia, unspecified; Z87.01 Personal history of pneumonia (recurrent); Z79.82 Long term (current) use of aspirin; Z79.84 Long term (current) use of oral hypoglycemic drugs; W05.0XXA Fall from non-moving wheelchair, initial encounter
CPT/HCPCS: 70450; 72125; 99284

== ENCOUNTER 2022-10-22 02:28 | Emergency (ER) | payer MEDICARE, MEDICAID, SELFPAY ==
[2022-10-22] VITALS (46 sets, daily range): BP systolic 118–180; BP diastolic 54–143; PULSE 78–96; RESP 15–22; TEMP 36.6; O2SAT 95–100
--- NOTE | ~2022-10-22 | XR_ITS ---
XR chest 1V portable DATE: 10/31/2022 13:52 INDICATION: Chest pain TECHNIQUE: Portable upright AP chest on October 22, 2022 2245 hours COMPARISON: 10/10/2018 AP and lateral chest FINDINGS: Heart size appears normal. Is aortic arch calcification. Large hiatal hernia. There is mild infiltrate or atelectasis at the lung bases. The mid and upper lung zones appear clear. No pulmonary vascular congestion or pneumothorax. There is slight if any pleural effusion. Osteopenia. Thoracolumbar scoliosis and degenerative change. IMPRESSION: Mild infiltrate or atelectasis at the lung bases Large hiatal hernia Aortic calcification Osteopenia Thoracolumbar scoliosis and degenerative change Reviewed, dictated and finalized at location B.
--- NOTE | 2022-10-22 02:38 | ECG_ITS ---
Measurements Intervals [place] Rate: 94 P: 52 FL: 161 QRS: 21 QRSD: 90 T: 56 QT: 375 QTc: 470 Interpretive Statements SINUS RHYTHM INTERPRETATION BASED ON A DEFAULT AGE OF 40 YEARS COMPARED TO ECG 09/19/2021 12:50:10 NO SIGNIFICANT CHANGES Electronically Signed On 10-22-2022 18:02:44 CDT by Luis Patel M.D.
--- NOTE | 2022-10-22 02:40 | ED.GENADULT ---
HPI - General Adult General Chief complaint: Chest Pain Stated complaint: chest pain Time Seen by Provider: 10/22/22 02:33 History of Present Illness HPI narrative: Patient 77-year-old female who presents the emergency department with chief complaint of chest pain. Patient reports that about 2 hours prior to EMS being called patient had a brief episode of chest pain the patient states it was in the central portion of her chest and reports that it resolved after a couple minutes. The patient reports she told the nursing staff at the long-term where she was staying at and they waited 2 hours and called EMS the patient stated that she did not really want to come to the hospital but reported that they made her come to the hospital. The patient reports that her symptoms have completely resolved and reports that she wants to be checked out quick so she can get home and go to sleep Related Data Home Medications Medication Instructions Recorded Confirmed acetaminophen 325 mg tablet 650 mg PO Q4-6H PRN Pain (Scale 09/19/21 09/19/21 Score 1-3) aspirin 81 mg chewable tablet 81 mg PO DAILY 09/19/21 09/19/21 carbidopa 10 mg-levodopa 100 mg 10 - 100 tablet PO TID 09/19/21 09/19/21 tablet divalproex 125 mg capsule,delayed 125 mg PO BID 09/19/21 09/19/21 release sprinkle docusate sodium 100 mg capsule 100 mg PO BID 09/19/21 09/19/21 (Colace) fenofibrate micronized 67 mg 67 mg PO DAILY 09/19/21 09/19/21 capsule ferrous sulfate 325 mg (65 mg 325 mg PO TID 09/19/21 09/19/21 iron) capsule,extended release furosemide 20 mg tablet 20 mg PO DAILY 09/19/21 09/19/21 levothyroxine 50 mcg tablet 50 mcg PO DAILY 09/19/21 09/19/21 memantine 28 mg capsule 28 mg PO DAILY 09/19/21 09/19/21 sprinkle,extended release 24hr (Namenda XR) metformin 500 mg tablet 500 mg PO DAILY 09/19/21 09/19/21 mirtazapine 7.5 mg tablet 7.5 mg PO DAILY 09/19/21 09/19/21 potassium chloride 10 mEq 10 meq PO DAILY 09/19/21 09/19/21 tablet,extended release primidone 250 mg/5 mL oral 250 mg PO BID 09/19/21 09/19/21 suspension quetiapine 200 mg tablet 200 mg PO HS 09/19/21 09/19/21 Allergies Allergy/AdvReac Type Severity Reaction Status Date / Time DANIEL Inhibitors Allergy Severe Anaphylactic Verified 09/19/21 13:04 Shock Penicillins Allergy Unknown Other Verified 09/19/21 13:04 Review of Systems Review of Systems: A 10 system review of systems was completed on the patient and is negative except for what is stated in the HPI. Nursing and ancillary documentation was reviewed. [facility] Past Medical History Medical History Alzheimer disease Anemia Anxiety Arthritis CHF (congestive heart failure) COPD (chronic obstructive pulmonary disease) Dementia Depression DM (diabetes mellitus) GERD (gastroesophageal reflux disease) H/O: HTN (hypertension) History of degenerative joint disease History of GI bleed History of pneumonia Hx of esophagitis Hx of hemorrhoids Hx of hiatal hernia Hx of Parkinson's disease Hx of seizure disorder Hx of transient ischemic attack (TIA) Hx: UTI (urinary tract infection) Hypercholesteremia Hypothyroid Psychoses Schizo affective schizophrenia Surgical History Surgical History Surgical history unknown Social History Social History Spiritual care concerns: No Exam Narrative: GENERAL: Well-appearing, well-nourished, and in no acute distress. HEAD: Normocephalic, atraumatic. EYES: PERRLA and EOMI. ENT: Nares clear, no rhinorrhea or epistaxis. Mucous membranes moist. NECK: Supple. CHEST: Clear to auscultation. No respiratory distress. HEART: Regular rate and rhythm. No murmur heard. Normal peripheral pulses. ABDOMEN: Soft, nontender, nondistended, normal active bowel sounds. EXTREMITIES: Normal range of motion. No ed
[2022-10-22] MEDS: ASPIRIN 81 MG CHEWABLE TABLET 324 MG PO (02:58)
[2022-10-22 03:02] LABS: Basophils Percent Auto 0.4 % (0.2-1.2); Eosinophils Absolute Auto 0.1 K/mm3 (0-0.3); Eosinophils Percent Auto 0.7 % (0-4.4); Hematocrit 36.2 % (37.0-47.0); Hemoglobin 11.8 g/dL (12.0-15.0); Immature Granulocyte Absolute 0.13 K/mm3 (0.00-0.031); Immature Granulocyte Percent A 1.4 % (0-0.5); Lymphocytes Absolute Auto 1.55 K/mm3 (0.9-3.2); Mean Corpuscular HGB Conc 32.6 g/dl (32-36); Mean Corpuscular Hemoglobin 32.2 pg (26-34); Mean Corpuscular Volume 98.9 fl (80-100); Mean Platelet Volume 10.1 fl (7.4-10.4); Monocytes Absolute Auto 0.9 K/mm3 (0.1-0.6); Monocytes Percent Auto 9.7 % (2.6-8.5); Neutrophils Absolute Auto 6.5 K/mm3 (1.3-6.7); Neutrophils Percent Auto 70.8 % (45.5-73.1); Platelet Count Result 184 k/mm3 (150-375); Red Blood Count 3.66 M/mm3 (4.2-5.4); Red Cell Distribution Width 13.6 % (11.5-14.5); White Blood Count 9.1 K/mm3 (4.5-10.0)
[2022-10-22 03:18] LABS: INR 1.1; Prothrombin Time 13.6 Seconds (11.1-14.7)
[2022-10-22 03:19] LABS: Partial Thromboplastin Time 28.9 SECONDS (22.3-36.8)
[2022-10-22 03:51] LABS: Troponin I < 0.012 ng/mL (0.000-0.034)
[2022-10-22 04:00] LABS: Alanine Aminotransferase 14 U/L (6-35); Albumin Level 3.9 g/dL (3.5-5.1); Alkaline Phosphatase 90 U/L (38-126); Anion Gap 9 mmol/L (8-16); Aspartate Amino Transferase 25 U/L (14-36); Bilirubin,Total 0.4 mg/dL (0.2-1.3); Blood Urea Nitrogen 38 mg/dL (7-17); Calcium 8.9 mg/dL (8.4-10.2); Carbon Dioxide 26 mmol/L (22-30); Chloride 105 mmol/L (98-107); Estimated CRCL calculation 37 ml/min; Estimated Glomerular Filt Rate 34; Glucose 152 mg/dL (65-110); Lipase 286 U/L (23-300); Potassium 4.1 mmol/L (3.4-5.0); Sodium 140 mmol/L (137-145)
[2022-10-22 04:09] LABS: NT Pro B Type Natriuretic Pept 428 pg/mL (19.9-100)
[2022-10-22] MEDS: SODIUM CHLORIDE 0.9% IV 500 ML 999 ML IV CONT (04:11)
[2022-10-22 07:27] LABS: Troponin I < 0.012 ng/mL (0.000-0.034)
--- NOTE | 2022-10-22 07:49 | PC.NURSE ---
RN attempts to call [facility] for RN to RN report with no answer. An ambulance will arrive around 9:30 to return pt back to [facility].
--- NOTE | 2022-10-22 08:40 | PC.NURSE ---
RN calls [facility] to give RN to RN.
--- NOTE | 2022-10-22 08:42 | PC.NURSE ---
RN called report to Aurea RN at [facility]. RN also printed pt results to take with pt on return to transfer.
[2022-10-22 09:07] LABS: Troponin I 0.017 ng/mL (0.000-0.034)
== END 2022-10-22 10:08 | disposition home or self-care (01) ==
PROVIDERS: Emergency Medicine; Emergency Provider Emergency Medicine; PCP Internal Medicine
DX: R07.9 Chest pain, unspecified (principal); G30.9 Alzheimer's disease, unspecified; F02.80 Dementia in other diseases classified elsewhere, unspecified severity, without behavioral disturbance, psychotic disturbance, mood disturbance, and anxiety; I50.9 Heart failure, unspecified; E11.9 Type 2 diabetes mellitus without complications; I11.0 Hypertensive heart disease with heart failure; G20 Parkinson's disease; G40.909 Epilepsy, unspecified, not intractable, without status epilepticus; E78.00 Pure hypercholesterolemia, unspecified; E03.9 Hypothyroidism, unspecified; K21.9 Gastro-esophageal reflux disease without esophagitis; M19.90 Unspecified osteoarthritis, unspecified site; F20.9 Schizophrenia, unspecified; F41.9 Anxiety disorder, unspecified; Z86.718 Personal history of other venous thrombosis and embolism; Z87.01 Personal history of pneumonia (recurrent); Z86.2 Personal history of diseases of the blood and blood-forming organs and certain disorders involving the immune mechanism; Z87.440 Personal history of urinary (tract) infections; Z79.84 Long term (current) use of oral hypoglycemic drugs; Z79.82 Long term (current) use of aspirin
CPT/HCPCS: 36415; 71045; 80053; 83690; 83880; 84484; 85025; 85610; 85730; 93005; 96360; 99283; 99284; A9270; J7040

== ENCOUNTER 2023-03-10 09:51 | Inpatient (IN) | payer MEDICARE, MEDICAID, SELFPAY ==
[2023-03-10] VITALS (35 sets, daily range): BP systolic 91–128; BP diastolic 47–106; PULSE 86–109; RESP 13–26; TEMP 36.9–38.5; O2SAT 76–100; BMI 26.9
--- NOTE | ~2023-03-10 | NM_ITS ---
EXAMINATION: NM pulmonary perfusion DATE: 03/10/2023 15:13 INDICATION: hypoxia, COVID positive. Elevated d-dimer. TECHNIQUE: 5.5 mCi Tc-99m MAA by intravenous route. Scintigraphic images of the chest were obtained. COMPARISON: Chest radiographs dated 03/10/2023 FINDINGS: Moderate-sized perfusion defects at the lateral basilar segment of the left lower lobe without corres ponding radiographic opacity on chest radiograph. No other perfusion defects identified. IMPRESSION: 1. Nondiagnostic (low or intermediate probability) for pulmonary embolism. Reviewed, dictated and finalized at location A.
--- NOTE | ~2023-03-10 | XR_ITS ---
Portable chest x-ray Comparison: 10/22/2022 Clinical History: Fever Findings: Lungs are clear, without focal consolidation or pleural effusion. Cardiomediastinal silho uette is stable. Probable moderate hiatal hernia. Osseous structures are intact. Impression: Clear lungs. Probable moderate hiatal hernia. Reviewed, dictated and finalized at [facility]. Impression: Clear lungs. Probable moderate hiatal hernia.
--- NOTE | 2023-03-10 10:07 | ECG_ITS ---
Measurements Intervals [place] Rate: 104 P: 49 MN: 158 QRS: 24 QRSD: 85 T: 64 QT: 314 QTc: 414 Interpretive Statements SINUS TACHYCARDIA NONSPECIFIC T-WAVE ABNORMALITY BORDERLINE ECG COMPARED TO ECG 10/22/2022 02:36:19 NO SIGNIFICANT DIFFERENCE Electronically Signed On 03-10-2023 12:18:05 CDT by Fabian Clark M.D.
[2023-03-10] MEDS: SODIUM CHLORIDE 0.9% IV 500 ML 999 ML IV CONT ×2 (10:42→12:58)
[2023-03-10] MEDS: IBUPROFEN IV 400 MG in SODIUM CHLORIDE 0.9% IV 100 ML 200 MG IVPB (10:43)
--- NOTE | 2023-03-10 10:57 | ED.GENADULT ---
HPI - General Adult General Chief complaint: Unspecified Stated complaint: low sats, COVID + Time Seen by Provider: 03/10/23 10:07 Source: patient and EMS Mode of arrival: EMS Limitations: dementia History of Present Illness HPI narrative: This is a 78 year old female that presents to the ER for low oxygen saturation. Patient is reportedly COVID +. Noted to be hypoxic at nursing facility and febrile so sent in for evaluation. Patient gives no history due to her dementia. Related Data Home Medications Medication Instructions Recorded Confirmed acetaminophen 325 mg tablet 650 mg PO Q4H PRN Pain (Scale 09/19/21 03/10/23 Score 1-3) aspirin 81 mg chewable tablet 81 mg PO DAILY 09/19/21 03/10/23 fenofibrate micronized 67 mg 67 mg PO DAILY 09/19/21 03/10/23 capsule memantine 28 mg capsule 28 mg PO DAILY 09/19/21 03/10/23 sprinkle,extended release 24hr (Namenda XR) mirtazapine 7.5 mg tablet 7.5 mg PO DAILY 09/19/21 03/10/23 Tums 500 1 tablet PO Q6H PRN Acid Reflux 03/10/23 03/10/23 carbidopa 10 mg-levodopa 100 mg 1 tablet PO TID 03/10/23 03/10/23 tablet cholecalciferol (vitamin D3) 1,250 1,250 mcg PO MONTHLY 03/10/23 03/10/23 mcg (50,000 unit) capsule divalproex 125 mg capsule,delayed 625 mg PO BID 03/10/23 03/10/23 release sprinkle docusate sodium 100 mg capsule 100 mg PO BID 03/10/23 03/10/23 ferrous sulfate 324 mg (65 mg 325 mg PO TID 03/10/23 03/10/23 iron) tablet,delayed release furosemide 20 mg tablet 20 mg PO DAILY 03/10/23 03/10/23 guaifenesin 100 mg/5 mL oral liquid 300 mg PO Q6H PRN Cough 03/10/23 03/10/23 levothyroxine 50 mcg PO DAILY 03/10/23 03/10/23 magnesium hydroxide 400 mg/5 mL 30 ml PO DAILY PRN Constipation 03/10/23 03/10/23 oral suspension (Milk of Magnesia) metformin 500 mg tablet 500 mg PO DAILY 03/10/23 03/10/23 nystatin-triamcinolone 100,000 1 applic topical BID PRN skin 03/10/23 03/10/23 unit/g-0.1 % topical cream issues polyethylene glycol 3350 17 gram 17 g PO DAILY 03/10/23 03/10/23 oral powder packet (Miralax) potassium chloride 10 meq PO DAILY 03/10/23 03/10/23 primidone 250 mg tablet 250 mg PO Q12H 03/10/23 03/10/23 quetiapine 100 mg tablet (Seroquel) 150 mg PO QHS 03/10/23 03/10/23 Allergies Allergy/AdvReac Type Severity Reaction Status Date / Time DANIEL Inhibitors Allergy Severe Anaphylactic Verified 03/10/23 10:08 Shock Penicillins Allergy Unknown Other Verified 03/10/23 10:08 Review of Systems Review of Systems: ROS unobtainable: Yes unobtainable due to medical condition PMFSH Past Medical History Medical History (Updated 03/10/23 @ 21:04 by Celestino Perez MD) Acute hypoxemic respiratory failure due to COVID-19 Alzheimer disease Anemia Anxiety Arthritis CHF (congestive heart failure) COPD (chronic obstructive pulmonary disease) COVID-19 Dementia Depression DM (diabetes mellitus) GERD (gastroesophageal reflux disease) H/O: HTN (hypertension) History of degenerative joint disease History of GI bleed History of pneumonia Hx of esophagitis Hx of hemorrhoids Hx of hiatal hernia Hx of Parkinson's disease Hx of seizure disorder Hx of transient ischemic attack (TIA) Hx: UTI (urinary tract infection) Hypercholesteremia Hypothyroid Psychoses Schizo affective schizophrenia Urinary tract infection due to extended-spectrum beta lactamase (ESBL) producing Escherichia coli Surgical History Surgical History Surgical history unknown Social History Social History Smoking status: Never smoker Alcohol intake: never Substance use: never Lack of Transportation: No Lack of Food: Never True Current Housing: I Have Housing Concerned About Future Housing: No Difficulty Paying Gas/Electric Bills: No Difficulty Paying for Meds: No Currently Unemployed: No Education: Don't Know Difficulty w/ Childcare or Family Care: No Spiritual care concerns: N
[2023-03-10 10:58] LABS: Basophils Percent Auto 0.4 % (0.2-1.2); Eosinophils Percent Auto 0.2 % (0-4.4); Hematocrit 38.1 % (37.0-47.0); Immature Granulocyte Absolute 0.09 K/mm3 (0.00-0.031); Lymphocytes Absolute Auto 1.52 K/mm3 (0.9-3.2); Lymphocytes Percent Auto 16.8 % (18.3-44.2); Mean Corpuscular HGB Conc 31.5 g/dl (32-36); Mean Corpuscular Hemoglobin 33.1 pg (26-34); Mean Platelet Volume 9.8 fl (7.4-10.4); Monocytes Absolute Auto 1.2 K/mm3 (0.1-0.6); Monocytes Percent Auto 12.8 % (2.6-8.5); Neutrophils Absolute Auto 6.2 K/mm3 (1.3-6.7); Neutrophils Percent Auto 68.8 % (45.5-73.1); Platelet Count Result 174 k/mm3 (150-375); Red Blood Count 3.63 M/mm3 (4.2-5.4); Red Cell Distribution Width 14.3 % (11.5-14.5)
[2023-03-10 11:01] LABS: Lactic Acid Reflex 1.3 mmol/L (0.7-2.0)
[2023-03-10 11:04] LABS: INR 1.1; Partial Thromboplastin Time 29.1 SECONDS (22.3-36.8)
[2023-03-10 11:18] LABS: Alanine Aminotransferase 20 U/L (6-35); Albumin Level 3.7 g/dL (3.5-5.1); Alkaline Phosphatase 56 U/L (38-126); Anion Gap 10 mmol/L (8-16); Aspartate Amino Transferase 36 U/L (14-36); Bilirubin,Total 0.7 mg/dL (0.2-1.3); Blood Urea Nitrogen 36 mg/dL (7-17); Calcium 8.8 mg/dL (8.4-10.2); Carbon Dioxide 23 mmol/L (22-30); Chloride 109 mmol/L (98-107); Estimated Glomerular Filt Rate 26; Glucose 123 mg/dL (65-110); Sodium 142 mmol/L (137-145)
[2023-03-10 11:20] LABS: CRP 6.2 mg/dL (<1.0)
[2023-03-10 11:26] LABS: NT Pro B Type Natriuretic Pept 1990 pg/mL (19.9-100)
[2023-03-10 12:12] LABS: Procalcitonin 0.2 ng/mL
[2023-03-10 12:17] LABS: D Dimer 0.89 ug/mL (<0.48)
[2023-03-10 12:40] LABS: Influenza A QL RT-PCR Negative (Negative); Influenza B QL RT-PCR Negative (Negative); SARS-CoV-2 RNA PCR Positive (Negative)
--- NOTE | 2023-03-10 13:03 | PC.NURSE ---
Pt refusing to wear nasal cannula and found pt without nasal cannula on. Pt had O2 saturations of 87-89%. This RN reapplied the nasal cannula and educated pt on importance of wearing nasal cannula for oxygen.
[2023-03-10 13:42] LABS: Appearance Urine Cloudy (Clear); Bacteria Urine 4+ /hpf; Bilirubin Urine Negative (Negative); Blood Urine 1+ (Negative); Color Urine Yellow (Yellow); Glucose Urine UA Negative (Negative); Ketones Urine Negative (Negative); Leukocyte Esterase Ur 3+ LEU/UL (Negative); Need Manual Microscopic Reviewed; Nitrate Urine Positive (Negative); Protein Urine 1+ mg/dL (Negative); RBC Urine 0-2 /hpf (0-2); Specific Grav Ur 1.017 (1.001-1.035); Squamous Epithelial Cell Urine None seen /hpf (Few); WBC Urine >100 /hpf
[2023-03-10 13:43] LABS: Add Urine Microscopic? YES
[2023-03-10] MEDS: MEROPENEM 1 GM/NS 100 ML 1 GM/100 ML BAG IVPB (14:10)
[2023-03-10 16:52] LABS: Glucose Point of Care 104 mg/dl (65-105)
--- NOTE | 2023-03-10 20:49 | PM.IMHP ---
H&P: HPI History of Present Illness Date/Time: 03/10/23 20:49 Chief Complaint: Patient transferred to the ER for evaluation from the half-way with low oxygen saturations and high fever Narrative: Our patient is pleasantly confused, combative 78 years old white female who is a half-way resident. She was found to be hypoxic and febrile and was combative in the half-way. EMS was called and patient was sent to the ER for evaluation. Workup was done which showed COVID positive status. Patient was started on oxygen via nasal cannula, given IV fluids and started on IV meropenem given her history of ESBL UTI. She is being admitted under isolation status for further management. Unable to get a good history as patient is combative and pleasantly confused. Review of Systems Review of Systems: Unable to obtain review of systems as patient is pleasantly confused and combative. ROS unobtainable: Yes unobtainable due to medical condition PMFSH Past Medical History Medical History (Updated 03/10/23 @ 21:04 by Celestino Perez MD) Acute hypoxemic respiratory failure due to COVID-19 Alzheimer disease Anemia Anxiety Arthritis CHF (congestive heart failure) COPD (chronic obstructive pulmonary disease) COVID-19 Dementia Depression DM (diabetes mellitus) GERD (gastroesophageal reflux disease) H/O: HTN (hypertension) History of degenerative joint disease History of GI bleed History of pneumonia Hx of esophagitis Hx of hemorrhoids Hx of hiatal hernia Hx of Parkinson's disease Hx of seizure disorder Hx of transient ischemic attack (TIA) Hx: UTI (urinary tract infection) Hypercholesteremia Hypothyroid Psychoses Schizo affective schizophrenia Urinary tract infection due to extended-spectrum beta lactamase (ESBL) producing Escherichia coli Surgical History Surgical History Surgical history unknown Social History Social History Smoking status: Never smoker Alcohol intake: never Substance use: never Lack of Transportation: No Lack of Food: Never True Current Housing: I Have Housing Concerned About Future Housing: No Difficulty Paying Gas/Electric Bills: No Difficulty Paying for Meds: No Currently Unemployed: No Education: Don't Know Difficulty w/ Childcare or Family Care: No Spiritual care concerns: No Meds Home Medications and Allergies Home Medications Medication Instructions Recorded Confirmed Type acetaminophen 325 mg tablet 650 mg PO Q4H PRN Pain (Scale 09/19/21 03/10/23 History Score 1-3) aspirin 81 mg chewable tablet 81 mg PO DAILY 09/19/21 03/10/23 History fenofibrate micronized 67 mg 67 mg PO DAILY 09/19/21 03/10/23 History capsule memantine 28 mg capsule 28 mg PO DAILY 09/19/21 03/10/23 History sprinkle,extended release 24hr (Namenda XR) mirtazapine 7.5 mg tablet 7.5 mg PO DAILY 09/19/21 03/10/23 History Tums 500 1 tablet PO Q6H PRN Acid Reflux 03/10/23 03/10/23 History carbidopa 10 mg-levodopa 100 mg 1 tablet PO TID 03/10/23 03/10/23 History tablet cholecalciferol (vitamin D3) 1,250 1,250 mcg PO MONTHLY 03/10/23 03/10/23 History mcg (50,000 unit) capsule divalproex 125 mg capsule,delayed 625 mg PO BID 03/10/23 03/10/23 History release sprinkle docusate sodium 100 mg capsule 100 mg PO BID 03/10/23 03/10/23 History ferrous sulfate 324 mg (65 mg 325 mg PO TID 03/10/23 03/10/23 History iron) tablet,delayed release furosemide 20 mg tablet 20 mg PO DAILY 03/10/23 03/10/23 History guaifenesin 100 mg/5 mL oral liquid 300 mg PO Q6H PRN Cough 03/10/23 03/10/23 History levothyroxine 50 mcg PO DAILY 03/10/23 03/10/23 History magnesium hydroxide 400 mg/5 mL 30 ml PO DAILY PRN Constipation 03/10/23 03/10/23 History oral suspension (Milk of Magnesia) metformin 500 mg tablet 500 mg PO DAILY 03/10/23 03/10/23 History nystatin-triamcinolone 100,000 1 applic topic
[2023-03-10 21:23] LABS: Glucose Point of Care 112 mg/dl (65-105)
--- NOTE | 2023-03-10 22:08 | PC.NURSE ---
[place] from pharmacy called the nurse, patient GFR is less than 30 and to hold Remdesivir until morning labs are drawn.
[2023-03-10 22:38] LABS: Alanine Aminotransferase 25 U/L (6-35); Estimated CRCL calculation 24 ml/min; Estimated Glomerular Filt Rate 29; INR 1.2; Prothrombin Time 15.9 Seconds (11.1-14.7)
[2023-03-10] MEDS: PRIMIDONE 250 MG TABLET PO (23:26)
[2023-03-10] MEDS: ENOXAPARIN 30 MG/0.3 ML SYRINGE SUB-Q (23:26)
[2023-03-10] MEDS: DIVALPROEX SODIUM SPRINKLE 125 MG CAP.DR 625 MG PO (23:26)
[2023-03-10] MEDS: QUEtiapine FUMARATE 25 MG TABLET 50 MG PO (23:27)
[2023-03-10] MEDS: DOCUSATE SODIUM 100 MG CAPSULE PO (23:27)
[2023-03-10] MEDS: QUEtiapine FUMARATE 100 MG TABLET PO (23:28)
[2023-03-10] MEDS: CARBIDOPA/LEVODOPA 10/100 MG TABLET 1 TABLET PO (23:28)
[2023-03-10] MEDS: SODIUM CHLORIDE 0.9% IV 1,000 ML 75 ML IV CONT (23:28)
[2023-03-11] VITALS (12 sets, daily range): BP systolic 113–143; BP diastolic 47–79; PULSE 67–104; RESP 16–20; TEMP 36.3–37.6; O2SAT 92–100
[2023-03-11] MEDS: MEROPENEM 1 GM/NS 100 ML 1 GM/100 ML BAG IVPB ×2 (01:34→13:01)
--- NOTE | 2023-03-11 04:48 | PC.NURSE ---
On 03/10/23-03/11/23 the license pending RN, Devang Diaz, provided care and [facility] I have reviewed the RN's documentation and agree with the findings.
[2023-03-11] MEDS: LEVOTHYROXINE SODIUM 50 MCG TABLET PO (05:26)
[2023-03-11 05:57] LABS: Hematocrit 37.2 % (37.0-47.0); Hemoglobin 11.9 g/dL (12.0-15.0); Mean Corpuscular Hemoglobin 33.5 pg (26-34); Mean Corpuscular Volume 104.8 fl (80-100); Mean Platelet Volume 9.6 fl (7.4-10.4); Platelet Count Result 136 k/mm3 (150-375); Red Blood Count 3.55 M/mm3 (4.2-5.4); Red Cell Distribution Width 14.2 % (11.5-14.5); White Blood Count 5.1 K/mm3 (4.5-10.0)
[2023-03-11 06:08] LABS: INR 1.2; Prothrombin Time 15.5 Seconds (11.1-14.7)
[2023-03-11 06:15] LABS: D Dimer 0.86 ug/mL (<0.48)
[2023-03-11 06:49] LABS: Alanine Aminotransferase 10 U/L (6-35); Anion Gap 7 mmol/L (8-16); Blood Urea Nitrogen 28 mg/dL (7-17); CRP 16.3 mg/dL (<1.0); Calcium 8.3 mg/dL (8.4-10.2); Carbon Dioxide 25 mmol/L (22-30); Chloride 110 mmol/L (98-107); Estimated CRCL calculation 27 ml/min; Estimated Glomerular Filt Rate 33; Glucose 109 mg/dL (65-110); Magnesium 2.1 mg/dL (1.6-2.3); Sodium 142 mmol/L (137-145)
[2023-03-11 08:38] LABS: Glucose Point of Care 100 mg/dl (65-105)
[2023-03-11] MEDS: REMDESIVIR 200 MG/NS 250 ML 200 MG/250 ML BAG 250 MG IVPB (09:40)
[2023-03-11] MEDS: MIRTAZAPINE 7.5 MG TABLET PO (09:41)
[2023-03-11] MEDS: polyethylene glycoL 3350 17 GM POWD.PACK PO (09:41)
[2023-03-11] MEDS: POTASSIUM CHLORIDE 10 MEQ ER TABLET PO (09:41)
[2023-03-11] MEDS: CHOLECALCIFEROL 1,000 UNITS TABLET 1000 UNITS PO (09:41)
[2023-03-11] MEDS: ASCORBIC ACID 500 MG TABLET PO (09:41)
[2023-03-11] MEDS: ASPIRIN 81 MG CHEWABLE TABLET PO (09:41)
[2023-03-11] MEDS: DIVALPROEX SODIUM SPRINKLE 125 MG CAP.DR 625 MG PO ×2 (09:41→16:50)
[2023-03-11] MEDS: metFORMIN HCL 500 MG TABLET PO (09:42)
[2023-03-11] MEDS: FERROUS SULFATE 325 MG TABLET DR BY MOUTH ×2 (09:42→16:50)
[2023-03-11] MEDS: MEMANTINE HCL XR 28 MG CAP PO (09:42)
[2023-03-11] MEDS: ZINC SULFATE 220 MG CAPSULE PO (09:42)
[2023-03-11] MEDS: DOCUSATE SODIUM 100 MG CAPSULE PO ×2 (09:42→16:50)
[2023-03-11] MEDS: FUROSEMIDE 20 MG TABLET PO (09:42)
[2023-03-11] MEDS: PRIMIDONE 250 MG TABLET PO ×2 (09:43→20:18)
[2023-03-11] MEDS: CARBIDOPA/LEVODOPA 10/100 MG TABLET 1 TABLET PO ×2 (09:44→16:50)
[2023-03-11 12:02] LABS: Glucose Point of Care 107 mg/dl (65-105)
--- NOTE | 2023-03-11 12:35 | PC.NURSE ---
Patient refuses to take medication at this time stating to leave her alone .
--- NOTE | 2023-03-11 12:54 | PM.IMPN ---
Progress Note: A&P Assessment and Plan (1) COVID-19: Code(s): U07.1 - COVID-19 Status: Acute Assessment and Plan: COVID-19 isolation precautions Oxygen via nasal cannula to keep O2 sats 94% or more Chest x-ray clear lungs Patient started on IV dexamethasone 6 mg daily to be switched to p.o. when she improves; today day 2 IV remdesivir was ordered for 5 days as per COVID-19 treatment protocol; today day 2 CRP elevated at 16.3. Continue to trend. DuoNebs SIS Q6H Mucinex BID PT OT evaluation (2) Acute hypoxemic respiratory failure due to COVID-19: Code(s): U07.1 - COVID-19; J96.01 - Acute respiratory failure with hypoxia Status: Acute Assessment and Plan: Was on 4 L of O2 but has been weaned down to home oxygen of 2 L. (3) Urinary tract infection due to extended-spectrum beta lactamase (ESBL) producing Escherichia coli: Code(s): N39.0 - Urinary tract infection, site not specified; B96.29 - Other Escherichia coli [E. coli] as the cause of diseases classified elsewhere; Z16.12 - Extended spectrum beta lactamase (ESBL) resistance Status: Acute Assessment and Plan: IV meropenem ordered for her history of ESBL pneumonia Urine culture pending. Adjust antibiotics to culture results. She receive 2 L of IV hydration in the ER Patient started on gentle IV hydration with normal saline at 75 cc/hour Subjective Date/time seen: 03/11/23 12:54 Interval history: Patient difficult to have a discussion with due to being A&O to self. According to the nurse this is her baseline. She is not have any complaints at this time. Review of Systems Review of Systems: ROS unobtainable: Yes unobtainable due to mental status Exam Narrative: GENERAL: Comfortable, no acute distress HENMT: moist mucous membranes EYES: EOM intact b/l NECK: no lymphadenopathy RESPIRATORY: clear to auscultation CARDIO: Clear to auscultation GI: soft, nontender, bowel sounds present SKIN: no rashes EXTREMITIES: no edema, redness or tenderness Objective Data Vital Signs Vital Signs: Vital Signs - 24 hr 03/10/23 13:01 03/10/23 13:02 03/10/23 13:20 Temperature Pulse Rate 97 97 95 Respiratory Rate 20 13 21 H Blood Pressure 111/61 Pulse Oximetry 98 99 100 Oxygen Delivery 03/10/23 13:30 03/10/23 13:46 03/10/23 13:47 Temperature Pulse Rate 88 89 91 Respiratory Rate 18 19 19 Blood Pressure 91/47 L Pulse Oximetry 100 97 96 Oxygen Delivery 03/10/23 14:00 03/10/23 14:02 03/10/23 14:17 Temperature Pulse Rate 90 88 92 Respiratory Rate 18 17 17 Blood Pressure 99/55 L Pulse Oximetry 94 95 100 Oxygen Delivery 03/10/23 14:30 03/10/23 14:32 03/10/23 15:08 Temperature Pulse Rate 86 87 88 Respiratory Rate 18 18 14 Blood Pressure 101/50 L Pulse Oximetry 99 99 100 Oxygen Delivery 03/10/23 20:24 03/10/23 20:01 03/11/23 00:04 Temperature 98.4 F Pulse Rate 91 94 Respiratory Rate 18 Blood Pressure 128/62 Pulse Oximetry Oxygen Delivery 03/11/23 00:00 03/11/23 04:00 03/11/23 04:00 Temperature 99.1 F 98.2 F Pulse Rate 95 85 87 Respiratory Rate 18 18 Blood Pressure 113/49 L 117/47 L Pulse Oximetry 98 100 Oxygen Delivery 03/11/23 08:00 03/11/23 08:30 03/11/23 12:00 Temperature 98.6 F 99.6 F Pulse Rate 93 100 Respiratory Rate 16 16 Blood Pressure 143/79 H 135/74 Pulse Oximetry 95 100 Oxygen Delivery Mechanical Ventilation 03/11/23 08:00 03/11/23 12:00 Temperature Pulse Rate 90 95 Respiratory Rate Blood Pressure Pulse Oximetry Oxygen Delivery Intake/Output Intake/Output: Intake & Output 03/08/23 03/09/23 03/10/23 03/11/23 23:59 23:59 23:59 23:59 Intake Total 1204 100 Output Total 200 1600 Balance 1004 -1500 Meds/Results Medications: Active Medications Generic Name Dose Route Start Last Admin Trade Name Freq PRN Reason Stop Dose Admin Acetaminophen
[2023-03-11] MEDS: ALBUTEROL SULFATE NEB 2.5 MG/3 ML INH INHALATION ×2 (14:52→21:24)
[2023-03-11] MEDS: IPRATROPIUM BR 0.02% INH SOLN 0.5 MG/2.5 ML VIAL INHALATION ×2 (14:52→21:24)
[2023-03-11] MEDS: SODIUM CHLORIDE 0.9% IV 1,000 ML 75 ML IV CONT (16:50)
[2023-03-11 18:14] LABS: Glucose Point of Care 113 mg/dl (65-105)
[2023-03-11] MEDS: guaiFENesin 600 MG/DEXTROMETHORPHAN 30 MG SR TAB 12 HR 1 TAB PO (20:18)
[2023-03-11] MEDS: QUEtiapine FUMARATE 25 MG TABLET 50 MG PO (20:18)
[2023-03-11] MEDS: ENOXAPARIN 30 MG/0.3 ML SYRINGE SUB-Q (20:19)
[2023-03-11] MEDS: QUEtiapine FUMARATE 100 MG TABLET PO (20:19)
[2023-03-11 21:21] LABS: Glucose Point of Care 93 mg/dl (65-105)
[2023-03-12] VITALS (16 sets, daily range): BP systolic 118–131; BP diastolic 56–63; PULSE 75–89; RESP 18–23; TEMP 36.2–36.8; O2SAT 95–100
[2023-03-12] MEDS: MEROPENEM 1 GM/NS 100 ML 1 GM/100 ML BAG IVPB ×2 (01:13→13:53)
[2023-03-12] MEDS: ALBUTEROL SULFATE NEB 2.5 MG/3 ML INH INHALATION ×4 (03:07→20:26)
[2023-03-12] MEDS: IPRATROPIUM BR 0.02% INH SOLN 0.5 MG/2.5 ML VIAL INHALATION ×4 (03:07→20:26)
[2023-03-12] MEDS: LEVOTHYROXINE SODIUM 50 MCG TABLET PO (05:29)
--- NOTE | 2023-03-12 05:34 | PC.NURSE ---
On 03/11/23-03/12/23 the license pending RN, Devang Diaz, provided care and [facility]. I have reviewed the RN's documentation and agree with the findings.
[2023-03-12 06:40] LABS: Hematocrit 30.6 % (37.0-47.0); Hemoglobin 9.9 g/dL (12.0-15.0); Mean Corpuscular HGB Conc 32.4 g/dl (32-36); Mean Platelet Volume 9.6 fl (7.4-10.4); Platelet Count Result 123 k/mm3 (150-375); Red Cell Distribution Width 13.9 % (11.5-14.5); White Blood Count 4.6 K/mm3 (4.5-10.0)
[2023-03-12 06:48] LABS: INR 1.3; Prothrombin Time 16.5 Seconds (11.1-14.7)
[2023-03-12 06:52] LABS: Alanine Aminotransferase 27 U/L (6-35); Anion Gap 5 mmol/L (8-16); Blood Urea Nitrogen 18 mg/dL (7-17); Calcium 7.6 mg/dL (8.4-10.2); Carbon Dioxide 25 mmol/L (22-30); Chloride 111 mmol/L (98-107); Estimated CRCL calculation 36 ml/min; Estimated Glomerular Filt Rate 48; Glucose 122 mg/dL (65-110); Potassium 3.8 mmol/L (3.4-5.0); Sodium 141 mmol/L (137-145)
[2023-03-12 08:43] LABS: CRP 16.2 mg/dL (<1.0)
[2023-03-12 09:08] LABS: Glucose Point of Care 109 mg/dl (65-105)
[2023-03-12] MEDS: SODIUM CHLORIDE 0.9% IV 1,000 ML 75 ML IV CONT (09:56)
[2023-03-12] MEDS: CHOLECALCIFEROL 1,000 UNITS TABLET 1000 UNITS PO (10:00)
[2023-03-12] MEDS: CARBIDOPA/LEVODOPA 10/100 MG TABLET 1 TABLET PO ×3 (10:00→18:45)
[2023-03-12] MEDS: POTASSIUM CHLORIDE 10 MEQ ER TABLET PO (10:00)
[2023-03-12] MEDS: ASPIRIN 81 MG CHEWABLE TABLET PO (10:00)
[2023-03-12] MEDS: FUROSEMIDE 20 MG TABLET PO (10:00)
[2023-03-12] MEDS: PRIMIDONE 250 MG TABLET PO ×2 (10:00→21:51)
[2023-03-12] MEDS: DIVALPROEX SODIUM SPRINKLE 125 MG CAP.DR 625 MG PO ×2 (10:01→18:45)
[2023-03-12] MEDS: FERROUS SULFATE 325 MG TABLET DR BY MOUTH ×3 (10:01→18:45)
[2023-03-12] MEDS: MIRTAZAPINE 7.5 MG TABLET PO (10:01)
[2023-03-12] MEDS: metFORMIN HCL 500 MG TABLET PO (10:01)
[2023-03-12] MEDS: guaiFENesin 600 MG/DEXTROMETHORPHAN 30 MG SR TAB 12 HR 1 TAB PO ×2 (10:01→21:51)
[2023-03-12] MEDS: ASCORBIC ACID 500 MG TABLET PO (10:01)
[2023-03-12] MEDS: MEMANTINE HCL XR 28 MG CAP PO (10:01)
[2023-03-12] MEDS: polyethylene glycoL 3350 17 GM POWD.PACK PO (10:04)
[2023-03-12] MEDS: REMDESIVIR 100 MG/NS 250 ML 100 MG/250 ML BAG 250 MG IVPB (10:07)
[2023-03-12] MEDS: ZINC SULFATE 220 MG CAPSULE PO (10:07)
[2023-03-12 12:02] LABS: Glucose Point of Care 134 mg/dl (65-105)
[2023-03-12 12:49] LABS: Hematocrit 33.6 % (37.0-47.0); Hemoglobin 10.9 g/dL (12.0-15.0)
--- NOTE | 2023-03-12 14:00 | PM.IMPN ---
Progress Note: A&P Assessment and Plan (1) COVID-19: Code(s): U07.1 - COVID-19 Status: Acute Assessment and Plan: COVID-19 isolation precautions Oxygen via nasal cannula to keep O2 sats 94% or more Chest x-ray clear lungs Patient transition from IV dexamethasone to p.o. 6 mg; today day 3 IV remdesivir was ordered for 5 days as per COVID-19 treatment protocol; today day 3 CRP elevated at 16.3, 16.2. Continue to trend. DuoNebs SIS Q6H Mucinex BID PT OT evaluation (2) Acute hypoxemic respiratory failure due to COVID-19: Code(s): U07.1 - COVID-19; J96.01 - Acute respiratory failure with hypoxia Status: Acute Assessment and Plan: Was on 4 L of O2 but has been weaned down to home oxygen of 2 L. (3) Urinary tract infection due to extended-spectrum beta lactamase (ESBL) producing Escherichia coli: Code(s): N39.0 - Urinary tract infection, site not specified; B96.29 - Other Escherichia coli [E. coli] as the cause of diseases classified elsewhere; Z16.12 - Extended spectrum beta lactamase (ESBL) resistance Status: Acute Assessment and Plan: IV meropenem ordered for her history of ESBL pneumonia Urine culture positive for E coli ESBL. Due to uncomplicated cystitis will receive a 1 time dose of gentamicin. Discussed with ID pharmacist about this plan. Meropenem discontinued 03/12 Patient started on gentle IV hydration with normal saline at 75 cc/hour (4) Alzheimer's dementia: Code(s): G30.9 - Alzheimer's disease, unspecified; F02.80 - Dementia in other diseases classified elsewhere, unspecified severity, without behavioral disturbance, psychotic disturbance, mood disturbance, and anxiety Status: Acute Assessment and Plan: continue home medications (5) Seizures: Code(s): R56.9 - Unspecified convulsions Status: Acute Assessment and Plan: continue home medications (6) Hx of Parkinson's disease: Code(s): Z86.69 - Personal history of other diseases of the nervous system and sense organs Status: Acute Assessment and Plan: continue home medications (7) Schizo affective schizophrenia: Code(s): F25.9 - Schizoaffective disorder, unspecified Status: Acute Assessment and Plan: continue home medications Subjective Date/time seen: 03/12/23 14:00 Interval history: Patient appears to be doing better today and answers questions more appropriately. She is still A&O x1 which is her baseline. More pleasant today. Exam Narrative: GENERAL: Comfortable, no acute distress HENMT: moist mucous membranes EYES: EOM intact b/l NECK: no lymphadenopathy RESPIRATORY: clear to auscultation CARDIO: Clear to auscultation GI: soft, nontender, bowel sounds present SKIN: no rashes EXTREMITIES: no edema, redness or tenderness Objective Data Vital Signs Vital Signs: Vital Signs - 24 hr 03/11/23 16:00 03/11/23 16:00 03/11/23 19:58 Temperature 99.0 F 97.3 F L Pulse Rate 104 H 67 88 Respiratory Rate 16 18 Blood Pressure 125/67 124/52 L Pulse Oximetry 92 99 Oxygen Delivery Oxygen Flow Rate 03/11/23 21:26 03/11/23 21:36 03/11/23 21:37 Temperature Pulse Rate 89 90 Respiratory Rate 20 20 Blood Pressure Pulse Oximetry 94 Oxygen Delivery Nasal Cannula Oxygen Flow Rate 2 03/11/23 20:00 03/12/23 00:04 03/12/23 00:00 Temperature 98.2 F Pulse Rate 87 86 Respiratory Rate 18 Blood Pressure 122/63 Pulse Oximetry Oxygen Delivery Oxygen Flow Rate 03/12/23 03:08 03/12/23 03:20 03/12/23 04:00 Temperature 97.5 F L Pulse Rate 84 85 85 Respiratory Rate 20 20 18 Blood Pressure 118/59 L Pulse Oximetry 100 Oxygen Delivery Oxygen Flow Rate 03/12/23 04:37 03/12/23 04:00 03/12/23 08:20 Temperature Pulse Rate 85 89 Respiratory Rate 21 H Blood Pressure 131/56 L Pulse Oximetry 95 99 Oxygen Delivery Nasal Cannula Ox
[2023-03-12 17:48] LABS: Glucose Point of Care 117 mg/dl (65-105)
[2023-03-12] MEDS: DOCUSATE SODIUM 100 MG CAPSULE PO (18:45)
[2023-03-12] MEDS: QUEtiapine FUMARATE 25 MG TABLET 50 MG PO (21:51)
[2023-03-12] MEDS: QUEtiapine FUMARATE 100 MG TABLET PO (21:51)
[2023-03-12] MEDS: ENOXAPARIN 30 MG/0.3 ML SYRINGE SUB-Q (21:51)
[2023-03-12] MEDS: GENTAMICIN SULFATE INJ 360 MG in DEXTROSE 5% 100 ML 100 MG IVPB (22:45)
[2023-03-13] VITALS (10 sets, daily range): BP systolic 104–122; BP diastolic 52–60; PULSE 70–86; RESP 18–20; TEMP 36.2–36.5; O2SAT 96–100
[2023-03-13] MEDS: SODIUM CHLORIDE 0.9% IV 1,000 ML 75 ML IV CONT (02:20)
[2023-03-13] MEDS: IPRATROPIUM BR 0.02% INH SOLN 0.5 MG/2.5 ML VIAL INHALATION ×2 (02:40→07:10)
[2023-03-13] MEDS: ALBUTEROL SULFATE NEB 2.5 MG/3 ML INH INHALATION ×2 (02:40→07:10)
[2023-03-13 02:57] LABS: Glucose Point of Care 123 mg/dl (65-105)
[2023-03-13] MEDS: LEVOTHYROXINE SODIUM 50 MCG TABLET PO (05:07)
[2023-03-13 05:25] LABS: Hematocrit 31.5 % (37.0-47.0); Hemoglobin 10.1 g/dL (12.0-15.0); Mean Corpuscular HGB Conc 32.1 g/dl (32-36); Mean Corpuscular Volume 102.9 fl (80-100); Mean Platelet Volume 9.7 fl (7.4-10.4); Platelet Count Result 142 k/mm3 (150-375); Red Blood Count 3.06 M/mm3 (4.2-5.4); White Blood Count 4.6 K/mm3 (4.5-10.0)
[2023-03-13 05:34] LABS: INR 1.1; Prothrombin Time 15.1 Seconds (11.1-14.7)
[2023-03-13 05:42] LABS: Alanine Aminotransferase 19 U/L (6-35); Anion Gap 6 mmol/L (8-16); Blood Urea Nitrogen 16 mg/dL (7-17); CRP 8.4 mg/dL (<1.0); Calcium 7.6 mg/dL (8.4-10.2); Carbon Dioxide 25 mmol/L (22-30); Chloride 109 mmol/L (98-107); Estimated CRCL calculation 36 ml/min; Estimated Glomerular Filt Rate 48; Glucose 88 mg/dL (65-110); Sodium 140 mmol/L (137-145)
[2023-03-13 08:13] LABS: Glucose Point of Care 83 mg/dl (65-105)
[2023-03-13] MEDS: DEXAMETHASONE 2 MG TABLET 6 MG PO (08:59)
[2023-03-13] MEDS: CARBIDOPA/LEVODOPA 10/100 MG TABLET 1 TABLET PO ×3 (08:59→18:07)
[2023-03-13] MEDS: ASCORBIC ACID 500 MG TABLET PO (08:59)
[2023-03-13] MEDS: DOCUSATE SODIUM 100 MG CAPSULE PO (09:00)
[2023-03-13] MEDS: FERROUS SULFATE 325 MG TABLET DR BY MOUTH ×3 (09:00→18:07)
[2023-03-13] MEDS: guaiFENesin 600 MG/DEXTROMETHORPHAN 30 MG SR TAB 12 HR 1 TAB PO (09:00)
[2023-03-13] MEDS: DIVALPROEX SODIUM SPRINKLE 125 MG CAP.DR 625 MG PO ×2 (09:00→18:06)
[2023-03-13] MEDS: ASPIRIN 81 MG CHEWABLE TABLET PO (09:00)
[2023-03-13] MEDS: metFORMIN HCL 500 MG TABLET PO (09:00)
[2023-03-13] MEDS: MEMANTINE HCL XR 28 MG CAP PO (09:00)
[2023-03-13] MEDS: PRIMIDONE 250 MG TABLET PO (09:00)
[2023-03-13] MEDS: CHOLECALCIFEROL 1,000 UNITS TABLET 1000 UNITS PO (09:00)
[2023-03-13] MEDS: ZINC SULFATE 220 MG CAPSULE PO (09:00)
[2023-03-13] MEDS: FUROSEMIDE 20 MG TABLET PO (09:00)
[2023-03-13] MEDS: MIRTAZAPINE 7.5 MG TABLET PO (09:00)
[2023-03-13] MEDS: polyethylene glycoL 3350 17 GM POWD.PACK PO (09:01)
[2023-03-13] MEDS: POTASSIUM CHLORIDE 10 MEQ ER TABLET PO (09:02)
[2023-03-13] MEDS: REMDESIVIR 100 MG/NS 250 ML 100 MG/250 ML BAG 250 MG IVPB (09:03)
--- NOTE | 2023-03-13 11:25 | PM.DS ---
DS: Admitting Diagnosis Discharge Date 03/13/23 Admitting Diagnosis UTI, COVID DS: Discharge Diagnosis Discharge Diagnosis (1) COVID-19: Code(s): U07.1 - COVID-19 Status: Acute (2) Acute hypoxemic respiratory failure due to COVID-19: Code(s): U07.1 - COVID-19; J96.01 - Acute respiratory failure with hypoxia Status: Acute (3) Urinary tract infection due to extended-spectrum beta lactamase (ESBL) producing Escherichia coli: Code(s): N39.0 - Urinary tract infection, site not specified; B96.29 - Other Escherichia coli [E. coli] as the cause of diseases classified elsewhere; Z16.12 - Extended spectrum beta lactamase (ESBL) resistance Status: Acute (4) Alzheimer's dementia: Code(s): G30.9 - Alzheimer's disease, unspecified; F02.80 - Dementia in other diseases classified elsewhere, unspecified severity, without behavioral disturbance, psychotic disturbance, mood disturbance, and anxiety Status: Acute (5) Seizures: Code(s): R56.9 - Unspecified convulsions Status: Acute (6) Hx of Parkinson's disease: Code(s): Z86.69 - Personal history of other diseases of the nervous system and sense organs Status: Acute (7) Schizo affective schizophrenia: Code(s): F25.9 - Schizoaffective disorder, unspecified Status: Acute DS: Summary Hospital Course Hospital Course: This is a 78-year-old female with a past medical history of Parkinson's disease, schizoaffective schizophrenia, renal failure, Alzheimer's she was found to be hypoxic and afebrile and her fpc. She was brought to the ED for evaluation and workup revealed COVID positive as well as urine suspicious for infection. Patient previously diagnosed with E coli ESBL and she you was started on meropenem. She was also started on dexamethasone and remdesivir and put on COVID precautions. Patient did require 4 L of oxygen on arrival when she normally wears 2 L at home. Patient did well with treatment and more alert after approximately 2 days of treatment. She was downgraded to p.o. dexamethasone the day before discharge. Patient return to home O2 settings in satting at 96%. Patient states that she does have some fatigue but other than that she is feeling back to herself. Patient's urine came back positive for E coli ESBL. Due to a complicated cystitis she was given a 1 time dose of gentamicin. Continue remdesivir for a total of 5 days of dexamethasone for a total of 10 days. Patient's labs and vital signs are stable and she is medically cleared for discharge at this time. Time Spent with Patient Time attestation: Total time spent providing and/or coordinating discharge services: Exam Narrative: GENERAL: Comfortable, no acute distress HENMT: moist mucous membranes EYES: EOM intact b/l NECK: no lymphadenopathy RESPIRATORY: clear to auscultation CARDIO: Clear to auscultation GI: soft, nontender, bowel sounds present SKIN: no rashes EXTREMITIES: no edema, redness or tenderness DS: Data Data Completed and Pending Labs on day of discharge: Labs from last 24 hours 03/13/23 03/13/23 03/13/23 08:10 05:01 05:01 WBC RBC Hgb Hct MCV MCH MCHC RDW Plt Count MPV PT INR Sodium Potassium Chloride Carbon Dioxide Anion Gap BUN Creatinine Estim Creat Clear Calc Estimated GFR Glucose POC Capillary Glucose 83 Calcium ALT Cancelled C-Reactive Protein Cancelled 8.4 H 03/13/23 03/12/23 03/12/23 05:01 20:39 17:39 WBC 4.6 RBC 3.06 L Hgb 10.1 L Hct 31.5 L MCV 102.9 H MCH 33.0 MCHC 32.1 RDW 14.0 Plt Count 142 L MPV 9.7 PT 15.1 H INR 1.1 Sodium 140 Potassium 4.0 Chloride 109 H Carbon Dioxide 25 Anion Gap 6 L BUN 16 Creatinine 1.10 H Estim Creat Clear Calc 36 Estimated GFR 48 L Glucose 88 POC Capillary Glucose 123 H 117 H Calcium
[2023-03-13 12:33] LABS: Glucose Point of Care 140 mg/dl (65-105)
== END 2023-03-13 19:20 | disposition home health service (06) | DRG 177 ==
LOC: ANHED 13:59 → ANH2MED 14:59
PROVIDERS: Student in an Organized Health Care Education/Training Program; Admitting Provider Family Medicine; Emergency Provider Physician Assistant; PCP Internal Medicine; Visit Provider Internal Medicine Critical Care Medicine
DX: U07.1 COVID-19 (principal); G93.41 Metabolic encephalopathy; J96.01 Acute respiratory failure with hypoxia; N39.0 Urinary tract infection, site not specified; Z16.12 Extended spectrum beta lactamase (ESBL) resistance; B96.20 Unspecified Escherichia coli [E. coli] as the cause of diseases classified elsewhere; G30.9 Alzheimer's disease, unspecified; F02.80 Dementia in other diseases classified elsewhere, unspecified severity, without behavioral disturbance, psychotic disturbance, mood disturbance, and anxiety; I11.0 Hypertensive heart disease with heart failure; I50.9 Heart failure, unspecified; J44.9 Chronic obstructive pulmonary disease, unspecified; D64.9 Anemia, unspecified; E11.9 Type 2 diabetes mellitus without complications; K21.9 Gastro-esophageal reflux disease without esophagitis; E03.9 Hypothyroidism, unspecified; F25.9 Schizoaffective disorder, unspecified; M19.90 Unspecified osteoarthritis, unspecified site; Z79.82 Long term (current) use of aspirin; Z86.73 Personal history of transient ischemic attack (TIA), and cerebral infarction without residual deficits
CPT/HCPCS: 36415; 71045; 78580; 80048; 80053; 81001; 82565; 82728; 82948; 83605; 83735; 83880; 84100; 84145; 84443; 84460; 85014; 85018; 85025; 85027; 85380; 85610; 85730; 86140; 87077; 87086; 87088; 87186; 87636; 93005; 94640; 96361; 96365; 96367; 99285; A9270; A9540; J0248; J1100; J1580; J1650; J1741; J2185; J7030; J7040; J8540

== ENCOUNTER 2023-05-31 07:38 | Inpatient (IN) | payer MEDICARE, MEDICAID, SELFPAY ==
[2023-05-31] VITALS (45 sets, daily range): BP systolic 94–137; BP diastolic 55–92; PULSE 60–82; RESP 11–22; TEMP 36.4–36.5; O2SAT 91–100
--- NOTE | ~2023-05-31 | XR_ITS ---
EXAMINATION: XR chest 1V portable DATE: 05/31/2023 08:21 INDICATION: Hemoptysis. TECHNIQUE: A single frontal view of the chest was obtained. COMPARISON: Chest single view 03/10/2023, CT abdomen and pelvis 10/09/2018. FINDINGS: There are airspace opacities in the lower lung zones. No pleural effusion or pneumothorax. The heart size is normal. There is a moderate-sized hiatal hernia. IMPRESSION: 1. Worsened airspace opacities in the lower lung zones, consistent with atelectasis versus pneumonia. 2. Moderate-sized hiatal hernia. Reviewed, dictated and finalized at location [facility] IMPRESSION: 1. Worsened airspace opacities in the lower lung zones, consistent with atelect asis versus pneumonia. 2. Moderate-sized hiatal hernia.
[2023-05-31 08:39] LABS: Influenza A QL RT-PCR Negative (Negative); Influenza B QL RT-PCR Negative (Negative); RSV RNA, RT-PCR Negative (Negative); SARS-CoV-2 RNA PCR Negative (Negative)
--- NOTE | 2023-05-31 09:02 | ED.GENADULT ---
HPI - General Adult General Chief complaint: Recheck/Abnormal Lab/Rx Stated complaint: PNEUMONIA ON CXR, HEMOPTYSIS Time Seen by Provider: 05/31/23 08:48 History of Present Illness HPI narrative: Patient is 78-year-old female who presents to the emergency department this morning from her extended care facility with a known diagnosis of pneumonia due to concern for hemoptysis. [facility] did inform us prior to patient's arrival that they were sending her in as she was recently diagnosed with pneumonia and they are required per protocol to send in any patient who has hemoptysis as it could be TB related. Unsure if patient finished an outpatient dose of oral antibiotics. Patient is currently denying any symptoms including chest pain, shortness of breath, nausea, vomiting, abdominal pain, dysuria, hematuria, constipation, diarrhea, melena, hematochezia, fevers or chills. Patient also denies any headaches, dizziness, lightheadedness, blurry visions, focal weakness, numbness and or tingling. There are no other modifying, alleviating, or precipitating factors at this time. Related Data Home Medications Medication Instructions Recorded Confirmed acetaminophen 325 mg tablet 650 mg PO Q4H PRN Pain (Scale 09/19/21 03/10/23 Score 1-3) aspirin 81 mg chewable tablet 81 mg PO DAILY 09/19/21 03/10/23 fenofibrate micronized 67 mg 67 mg PO DAILY 09/19/21 03/10/23 capsule memantine 28 mg capsule 28 mg PO DAILY 09/19/21 03/10/23 sprinkle,extended release 24hr (Namenda XR) mirtazapine 7.5 mg tablet 7.5 mg PO DAILY 09/19/21 03/10/23 Tums 500 1 tablet PO Q6H PRN Acid Reflux 03/10/23 03/10/23 carbidopa 10 mg-levodopa 100 mg 1 tablet PO TID 03/10/23 03/10/23 tablet cholecalciferol (vitamin D3) 1,250 1,250 mcg PO MONTHLY 03/10/23 03/10/23 mcg (50,000 unit) capsule divalproex 125 mg capsule,delayed 625 mg PO BID 03/10/23 03/10/23 release sprinkle docusate sodium 100 mg capsule 100 mg PO BID 03/10/23 03/10/23 ferrous sulfate 324 mg (65 mg 325 mg PO TID 03/10/23 03/10/23 iron) tablet,delayed release furosemide 20 mg tablet 20 mg PO DAILY 03/10/23 03/10/23 guaifenesin 100 mg/5 mL oral liquid 300 mg PO Q6H PRN Cough 03/10/23 03/10/23 levothyroxine 50 mcg PO DAILY 03/10/23 03/10/23 magnesium hydroxide 400 mg/5 mL 30 ml PO DAILY PRN Constipation 03/10/23 03/10/23 oral suspension (Milk of Magnesia) metformin 500 mg tablet 500 mg PO DAILY 03/10/23 03/10/23 nystatin-triamcinolone 100,000 1 applic topical BID PRN skin 03/10/23 03/10/23 unit/g-0.1 % topical cream issues polyethylene glycol 3350 17 gram 17 g PO DAILY 03/10/23 03/10/23 oral powder packet (Miralax) potassium chloride 10 meq PO DAILY 03/10/23 03/10/23 primidone 250 mg tablet 250 mg PO Q12H 03/10/23 03/10/23 quetiapine 100 mg tablet (Seroquel) 150 mg PO QHS 03/10/23 03/10/23 Allergies Allergy/AdvReac Type Severity Reaction Status Date / Time DANIEL Inhibitors Allergy Severe Anaphylactic Verified 05/31/23 07:48 Shock Penicillins Allergy Unknown Other Verified 05/31/23 07:48 Review of Systems Review of Systems: All systems are reviewed and are negative unless stated otherwise in the HPI. [facility] Past Medical History Medical History Acute hypoxemic respiratory failure due to COVID-19 Alzheimer disease Anemia Anxiety Arthritis CHF (congestive heart failure) COPD (chronic obstructive pulmonary disease) COVID-19 Dementia Depression DM (diabetes mellitus) GERD (gastroesophageal reflux disease) H/O: HTN (hypertension) History of degenerative joint disease History of GI bleed History of pneumonia Hx of esophagitis Hx of hemorrhoids Hx of hiatal hernia Hx of Parkinson's disease Hx of seizure disorder Hx of transient ischemic attack (TIA) Hx: UTI (urinary tract infection) Hypercholesteremia Hypothyroid Psychoses Schizo affective schizophrenia Urinary tract infection due to extended-spectrum beta
[2023-05-31 09:40] LABS: Basophils Absolute Auto 0.1 K/mm3 (0.0-0.1); Basophils Percent Auto 0.9 % (0.2-1.2); Eosinophils Absolute Auto 0.3 K/mm3 (0-0.3); Eosinophils Percent Auto 4.6 % (0-4.4); Hematocrit 33.9 % (37.0-47.0); Hemoglobin 10.8 g/dL (12.0-15.0); Immature Granulocyte Absolute 0.12 K/mm3 (0.00-0.031); Lymphocytes Absolute Auto 2.21 K/mm3 (0.9-3.2); Lymphocytes Percent Auto 37.6 % (18.3-44.2); Mean Corpuscular HGB Conc 31.9 g/dl (32-36); Mean Corpuscular Hemoglobin 31.9 pg (26-34); Mean Platelet Volume 10.1 fl (7.4-10.4); Monocytes Absolute Auto 0.8 K/mm3 (0.1-0.6); Monocytes Percent Auto 13.3 % (2.6-8.5); Neutrophils Absolute Auto 2.4 K/mm3 (1.3-6.7); Neutrophils Percent Auto 41.6 % (45.5-73.1); Platelet Count Result 221 k/mm3 (150-375); Red Blood Count 3.39 M/mm3 (4.2-5.4); Red Cell Distribution Width 13.2 % (11.5-14.5); White Blood Count 5.9 K/mm3 (4.5-10.0)
[2023-05-31 09:50] LABS: Alanine Aminotransferase 12 U/L (6-35); Albumin Level 3.6 g/dL (3.5-5.1); Alkaline Phosphatase 133 U/L (38-126); Anion Gap 8 mmol/L (8-16); Aspartate Amino Transferase 27 U/L (14-36); Bilirubin,Total 0.4 mg/dL (0.2-1.3); Blood Urea Nitrogen 28 mg/dL (7-17); Calcium 9.2 mg/dL (8.4-10.2); Carbon Dioxide 24 mmol/L (22-30); Chloride 107 mmol/L (98-107); Estimated CRCL calculation 24 ml/min; Estimated Glomerular Filt Rate 33; Glucose 80 mg/dL (65-110); Potassium 4.7 mmol/L (3.4-5.0); Sodium 139 mmol/L (137-145)
[2023-05-31] MEDS: levoFLOXacin 750 MG/D5W 150 ML 750 MG/150 ML BAG 100 MG IVPB (11:29)
[2023-05-31] MEDS: SODIUM CHLORIDE 0.9% IV 1,000 ML 100 ML IV CONT (11:29)
[2023-05-31 11:44] LABS: Appearance Urine Clear (Clear); Bilirubin Urine Negative (Negative); Blood Urine Negative (Negative); Color Urine Yellow (Yellow); Glucose Urine UA Negative (Negative); Ketones Urine Negative (Negative); Leukocyte Esterase Ur Negative LEU/UL (Negative); Nitrate Urine Negative (Negative); Protein Urine Negative (Negative); Specific Grav Ur 1.014 (1.001-1.035); Urobilinogen Urine 0.2 mg/dL (<2.0); pH Urine 6.5 (5.0-9.0)
[2023-05-31 11:52] LABS: Add Urine Microscopic? NO
--- NOTE | 2023-05-31 12:25 | PC.NURSE ---
Pt pulled out her IV line
--- NOTE | 2023-05-31 13:42 | PM.IMHP ---
H&P: HPI History of Present Illness Date/Time: 05/31/23 13:42 Chief Complaint: Cough, hemoptysis Narrative: Iliana Gutierrez is a 78 year old female with PMH of dementia, Parkinson's, DM2, COPD, and CHF who presents from her terminal make up operator care facility with hemoptysis. The patient is a poor historian and much of the information is gleaned from the medical record. The patient is reported to have recent diagnosis of pneumonia, although outpatient treatment information is unavailable. The patient states that she often has a hard time breathing and has been having some difficulty over the last several days moreso than normal. She states she continues to smoke, about a half pack daily. She denies any fevers or chills. She denies any chest pain. In light of the hemoptysis she was sent for evaluation for TB. The patient reports they have never been incarcerated or lived outside of the [place]. She denies any night sweats. On ED evaluation a cxr did not find cavitary lesions but did find worsening bilateral lower lung opacities compared to a prior xr on 03/10/23 consistent with atelectasis versus pna. There was additionally a moderate hiatal hernia. Labwork reveals a normal wbc count. There is a decrease in gfr at 33 with recent labs in the high 40s. She was given a dose of levaquin, 750mg and started on low dose IVF. She is being admitted for further management of her pneumonia in light of elevated curb65 score. Review of Systems Review of Systems: CONSTITUTIONAL: ?Denies weight loss, fever, chills, weakness, or fatigue. SKIN: ?No rash or pruritis. CARDIOVASCULAR: ?No chest pain, chest pressure or chest discomfort. No palpitations.? No PND or orthopnea. RESPIRATORY: ?+ shortness of breath intermittently, + cough.. GASTROINTESTINAL: ?Denies anorexia, nausea, vomiting, constipation, or diarrhea. No abdominal pain or bloody stools. GENITOURINARY: ?No dysuria. NEUROLOGICAL: ?No headache, dizziness, syncope, paralysis, numbness or tingling in the extremities. No change in bowel or bladder control. [facility] Past Medical History Medical History (Updated 05/31/23 @ 14:45 by Rob Orellana, BEBA) Acute hypoxemic respiratory failure due to COVID-19 Alzheimer disease Anemia Anxiety Arthritis CHF (congestive heart failure) COPD (chronic obstructive pulmonary disease) COVID-19 Dementia Depression DM (diabetes mellitus) GERD (gastroesophageal reflux disease) H/O: HTN (hypertension) History of degenerative joint disease History of GI bleed History of pneumonia Hx of esophagitis Hx of hemorrhoids Hx of hiatal hernia Hx of Parkinson's disease Hx of seizure disorder Hx of transient ischemic attack (TIA) Hx: UTI (urinary tract infection) Hypercholesteremia Hypothyroid Psychoses Schizo affective schizophrenia Urinary tract infection due to extended-spectrum beta lactamase (ESBL) producing Escherichia coli Surgical History Surgical History Surgical history unknown Social History Social History (Updated 05/31/23 @ 14:33 by Rob Orellana APRN) Smoking packs per day: 0.5 Smoking cigarettes per day: 10.0 Smoking status: Current every day smoker Alcohol intake: never Substance use: never Lack of Transportation: No Lack of Food: Never True Current Housing: I Have Housing Concerned About Future Housing: No Difficulty Paying Gas/Electric Bills: No Difficulty Paying for Meds: No Currently Unemployed: No Education: Don't Know Difficulty w/ Childcare or Family Care: No Spiritual care concerns: No Meds Home Medications and Allergies Home Medications Medication Instructions Recorded Confirmed Type acetaminophen 325 mg tablet 650 mg PO Q4H PRN Pain (Scale 09/19/21 03/10/23 History Score 1-3) aspirin 81 mg chewable tablet 81 mg PO DAILY 09/19/21 03/10/23 History fenofibrate micronized 67 mg 67 mg PO DAILY 09/19/21 03/10/23
--- NOTE | 2023-05-31 15:19 | ADMGEN ---
This patient, Iliana Gutierrez, was admitted to Medical Room 248-. Patient/family oriented to hospital policies and general routines including ID bracelet, bed and alarms, visiting hours, pain management, procedures, bathroom and other care routines, personal items, smoking policy, room service/diet, and visiting hours. Information on how to activate the Rapid Response Team has been discussed. Patient/Family are encouraged to report perceived risks to care and to ask questions if they do not understand what they are told or what they should do.
--- NOTE | 2023-05-31 16:49 | PC.NURSE ---
pt arrived from ER completely saturated in urine all the way down to the bed sheets. pt's depend was dripping with urine and resulted in pt's skin being macerated and painful. pt has been cleaned up, powder applied to feli area, new bedding, a clean gown, call light within reach.
--- NOTE | 2023-05-31 16:52 | PC.NURSE ---
Pt not alert and oriented. Med list documentation received from facility. Attempted to reach family per contact list in pt chart, no answer. Pt unable to provide history. RN completed admission to the best of abilities. Home meds have been reconciled.
[2023-05-31] MEDS: DIVALPROEX SODIUM SPRINKLE 125 MG CAP.DR 625 MG PO (18:07)
[2023-05-31] MEDS: CARBIDOPA/LEVODOPA 10/100 MG TABLET 1 TABLET PO (18:07)
[2023-05-31] MEDS: HEPARIN SODIUM 5,000 UNITS/ML VIAL 5000 UNITS SUB-Q (21:05)
[2023-05-31] MEDS: PRIMIDONE 250 MG TABLET PO (21:05)
[2023-05-31] MEDS: QUEtiapine FUMARATE 25 MG TABLET 50 MG PO (21:06)
[2023-05-31] MEDS: QUEtiapine FUMARATE 100 MG TABLET PO (21:06)
[2023-06-01] LABS: Glucose Point of Care 80 mg/dl (65-105)
[2023-06-01] MEDS: ACETAMINOPHEN 325 MG TABLET 650 MG PO (05:09)
[2023-06-01] MEDS: LEVOTHYROXINE SODIUM 50 MCG TABLET PO (05:09)
[2023-06-01 05:52] VITALS: BP 141/81; PULSE 90; RESP 20; TEMP 36.7; O2SAT 93
--- NOTE | 2023-06-01 06:00 | ECG_ITS ---
Measurements Intervals [place] Rate: 72 P: 32 [place]: 157 QRS: 11 QRSD: 88 T: 18 QT: 384 QTc: 423 Interpretive Statements SINUS RHYTHM BASELINE WANDER- I, II, AVR, AVL, AVF, V1-V3, V6 NORMAL ECG COMPARED TO ECG 03/10/2023 10:59:00 SINUS RHYTHM NOW PRESENT Electronically Signed On 06-01-2023 13:57:53 HEALTH SAFETY MANAGER by Stefan Mckeon D.O.
[2023-06-01 06:06] LABS: Hematocrit 33.3 % (37.0-47.0); Hemoglobin 10.6 g/dL (12.0-15.0); Mean Corpuscular HGB Conc 31.8 g/dl (32-36); Mean Corpuscular Hemoglobin 32.1 pg (26-34); Mean Corpuscular Volume 100.9 fl (80-100); Mean Platelet Volume 9.6 fl (7.4-10.4); Platelet Count Result 188 k/mm3 (150-375); Red Cell Distribution Width 13.2 % (11.5-14.5); White Blood Count 4.5 K/mm3 (4.5-10.0)
[2023-06-01 06:18] LABS: Alanine Aminotransferase 10 U/L (6-35); Albumin Level 3.3 g/dL (3.5-5.1); Alkaline Phosphatase 53 U/L (38-126); Anion Gap 10 mmol/L (8-16); Aspartate Amino Transferase 24 U/L (14-36); Bilirubin,Total 0.4 mg/dL (0.2-1.3); Blood Urea Nitrogen 21 mg/dL (7-17); Calcium 8.8 mg/dL (8.4-10.2); Carbon Dioxide 21 mmol/L (22-30); Chloride 106 mmol/L (98-107); Estimated CRCL calculation 25 ml/min; Estimated Glomerular Filt Rate 36; Glucose 101 mg/dL (65-110); Magnesium 1.9 mg/dL (1.6-2.3); Sodium 137 mmol/L (137-145)
[2023-06-01 06:42] LABS: Procalcitonin 0.1 ng/mL
[2023-06-01 08:00] VITALS: PULSE 90; RESP 20; O2SAT 98
--- NOTE | 2023-06-01 08:18 | P.PNIM_ITS ---
Progress Note: A&P Assessment and Plan (1) Pneumonia: Code(s): J18.9 - Pneumonia, unspecified organism Status: Acute Assessment and Plan: 05/31:23 * Bilateral lower lobe pna vs atelectasis with report of hemoptysis, although patient does not report large volume. I am uncertain of any outpatient treatment for pna and levaquin has been started. * Levaquin to q48 d/t renal function - may increase if renal function improves. * Check procal in am. 06/01/23: * Continue Levaquin * Procalcitonin 0.1 * Check urine strep and urine Legionella (2) Hx of Parkinson's disease: Code(s): Z86.69 - Personal history of other diseases of the nervous system and sense organs Status: Acute Assessment and Plan: 05/31/23: * Stable, cont. sinemet. 06/01/23: * No change to current treatment plan (3) CROW (acute kidney injury): Code(s): N17.9 - Acute kidney failure, unspecified Status: Acute Assessment and Plan: 05/1923: * Low dose hydration overnight, history chf but euvolemic on exam. Close i/o. 06/01/23: * BUN 21, creatinine 1.4, potassium 4.0, bicarb 21 * Baseline creatinine 1.40-1.50 * Continue to trend daily labs * Lasix restarted (4) Alzheimer's dementia: Code(s): G30.9 - Alzheimer's disease, unspecified; F02.80 - Dementia in other diseases classified elsewhere, unspecified severity, without behavioral disturbance, psychotic disturbance, mood disturbance, and anxiety Status: Acute Assessment and Plan: 05/31/23: * Stable and pleasant. Cont. namenda and seroquel. 06/01/23: * No change to current treatment (5) T2DM (type 2 diabetes mellitus): Code(s): E11.9 - Type 2 diabetes mellitus without complications Status: Acute Assessment and Plan: 05/31/23: * On metformin which will be continued. 06/01/23: * Blood sugars ranging 80-101 * Metformin on hold * No change to current treatment (6) Cough with hemoptysis: Code(s): R04.2 - Hemoptysis Status: Acute Assessment and Plan: 05/31/23: * No history of travel or living in endemic areas. No incarceration history. No cavitary lesions on imaging. Low likelihood of tuberculosis. 06/01/23: * Start Rasheeda Hair and Soha DM (7) CHF (congestive heart failure): Code(s): I50.9 - Heart failure, unspecified Status: Acute Assessment and Plan: 05/31/23: * No echo on file, appears euvolemic. On 20mg oral Lasix daily which will be held in light of the crow. 06/01/23: * Lasix restarted Time Spent With Patient Time with patient: Greater than 35 minutes Subjective Date/time seen: 06/01/23 08:18 Interval history: Interval history: 06/01/23: This is a 78 year old female who presented to the hospital on 05/31/23 with complaints of hemoptysis. Work up in the hospital included a chest x-ray that shown worsening bilateral lower lung opacities from prior x-ray back on 03/10/23. UA was completed and was negative for any bacteria. WBC 5.9, absolute neutrophils normal. BUN 28, creatinine 1.50 which is up from her baseline of 1.0. Alk phos 133. She was given a dose of Levaquin 750mg and started on IVF. On examination today patient is alert and oriented to self, lying in the bed. VSS, she is afebrile, currently on room air. She denies any pain or discomfort at this time. She also denies any headache, shortness of breath, chest pain, abdominal pain, nausea, vomiting or diarrhea. Labs reveal WBC 4.5, Hgb 10.6, Hct 33.3, Na+ 137, K+ 4
--- NOTE | 2023-06-01 08:18 | PM.IMPN ---
Progress Note: A&P Assessment and Plan (1) Pneumonia: Code(s): J18.9 - Pneumonia, unspecified organism Status: Acute Assessment and Plan: Bilateral lower lobe pna vs atelectasis with report of hemoptysis, although patient does not report large volume. I am uncertain of any outpatient treatment for pna and levaquin has been started. Levaquin to q48 d/t renal function - may increase if renal function improves. Check procal in am. 06/01/23: Continue Levaquin Procalcitonin 0.1 Check urine strep and urine Legionella (2) Hx of Parkinson's disease: Code(s): Z86.69 - Personal history of other diseases of the nervous system and sense organs Status: Acute Assessment and Plan: 05/31/23: Stable, cont. sinemet. 06/01/23: No change to current treatment plan (3) CROW (acute kidney injury): Code(s): N17.9 - Acute kidney failure, unspecified Status: Acute Assessment and Plan: 05/1923: Low dose hydration overnight, history chf but euvolemic on exam. Close i/o. 06/01/23: BUN 21, creatinine 1.4, potassium 4.0, bicarb 21 Baseline creatinine 1.40-1.50 Continue to trend daily labs Lasix restarted (4) Alzheimer's dementia: Code(s): G30.9 - Alzheimer's disease, unspecified; F02.80 - Dementia in other diseases classified elsewhere, unspecified severity, without behavioral disturbance, psychotic disturbance, mood disturbance, and anxiety Status: Acute Assessment and Plan: 05/31/23: Stable and pleasant. Cont. namenda and seroquel. 06/01/23: No change to current treatment (5) T2DM (type 2 diabetes mellitus): Code(s): E11.9 - Type 2 diabetes mellitus without complications Status: Acute Assessment and Plan: 05/31/23: On metformin which will be continued. 06/01/23: Blood sugars ranging 80-101 Metformin on hold No change to current treatment (6) Cough with hemoptysis: Code(s): R04.2 - Hemoptysis Status: Acute Assessment and Plan: 05/31/23: No history of travel or living in endemic areas. No incarceration history. No cavitary lesions on imaging. Low likelihood of tuberculosis. 06/01/23: Start Tessalon Perles and Robitussin DM (7) CHF (congestive heart failure): Code(s): I50.9 - Heart failure, unspecified Status: Acute Assessment and Plan: 05/31/23: No echo on file, appears euvolemic. On 20mg oral Lasix daily which will be held in light of the crow. 06/01/23: Lasix restarted Time Spent With Patient Time with patient: Greater than 35 minutes Subjective Date/time seen: 06/01/23 08:18 Interval history: Interval history: 06/01/23: This is a 78 year old female who presented to the hospital on 05/31/23 with complaints of hemoptysis. Work up in the hospital included a chest x-ray that shown worsening bilateral lower lung opacities from prior x-ray back on 03/10/23. UA was completed and was negative for any bacteria. WBC 5.9, absolute neutrophils normal. BUN 28, creatinine 1.50 which is up from her baseline of 1.0. Alk phos 133. She was given a dose of Levaquin 750mg and started on IVF. On examination today patient is alert and oriented to self, lying in the bed. VSS, she is afebrile, currently on room air. She denies any pain or discomfort at this time. She also denies any headache, shortness of breath, chest pain, abdominal pain, nausea, vomiting or diarrhea. Labs reveal WBC 4.5, Hgb 10.6, Hct 33.3, Na+ 137, K+ 4.0, Chloride 106, Bicarb 21, BUN 21, Creatinine 1.40, Alk phos down to 53, BG ranging 80-101, Liver enzymes normal. Procalcitonin from yesterday 0.1 She will continue on Levaquin 750mg for her treatment of pneumonia. Review of Systems Review of Systems: All systems reviewed & are unremarkable except as noted in HPI and below Constitutional: Constitutional: Reports as per HPI and Reports no additional constitutional complaints Eyes: Eyes: Reports
[2023-06-01] MEDS: MEMANTINE HCL XR 28 MG CAP PO (09:12)
[2023-06-01] MEDS: DIVALPROEX SODIUM SPRINKLE 125 MG CAP.DR 625 MG PO ×2 (09:12→17:23)
[2023-06-01] MEDS: HEPARIN SODIUM 5,000 UNITS/ML VIAL 5000 UNITS SUB-Q ×2 (09:12→22:40)
[2023-06-01] MEDS: CARBIDOPA/LEVODOPA 10/100 MG TABLET 1 TABLET PO ×3 (09:12→17:23)
[2023-06-01] MEDS: MIRTAZAPINE 7.5 MG TABLET PO (09:21)
[2023-06-01] MEDS: polyethylene glycoL 3350 17 GM POWD.PACK PO (09:21)
[2023-06-01] MEDS: DOCUSATE SODIUM 100 MG CAPSULE PO ×2 (09:21→17:23)
[2023-06-01] MEDS: FUROSEMIDE 20 MG TABLET PO (09:21)
[2023-06-01 12:31] VITALS: O2SAT 98
[2023-06-01] MEDS: PRIMIDONE 250 MG TABLET PO ×2 (13:46→22:40)
[2023-06-01 14:00] VITALS: BP 138/82; PULSE 86; RESP 20; TEMP 37; O2SAT 97
[2023-06-01] MEDS: BENZONATATE 100 MG CAPSULE 200 MG PO (17:23)
[2023-06-01 20:16] VITALS: BP 107/54; PULSE 78; RESP 18; TEMP 36.4; O2SAT 93
[2023-06-01] MEDS: QUEtiapine FUMARATE 25 MG TABLET 50 MG PO (22:40)
[2023-06-01] MEDS: QUEtiapine FUMARATE 100 MG TABLET PO (22:40)
[2023-06-02] MEDS: LEVOTHYROXINE SODIUM 50 MCG TABLET PO (05:43)
[2023-06-02 06:00] VITALS: BP 107/55; PULSE 82; RESP 18; TEMP 36.4; O2SAT 94
[2023-06-02 06:14] LABS: Basophils Percent Auto 0.5 % (0.2-1.2); Eosinophils Absolute Auto 0.1 K/mm3 (0-0.3); Hematocrit 35.9 % (37.0-47.0); Hemoglobin 11.7 g/dL (12.0-15.0); Immature Granulocyte Absolute 0.05 K/mm3 (0.00-0.031); Immature Granulocyte Percent A 1.1 % (0-0.5); Lymphocytes Absolute Auto 1.54 K/mm3 (0.9-3.2); Mean Corpuscular HGB Conc 32.6 g/dl (32-36); Mean Corpuscular Hemoglobin 32.7 pg (26-34); Mean Corpuscular Volume 100.3 fl (80-100); Mean Platelet Volume 9.6 fl (7.4-10.4); Monocytes Absolute Auto 0.5 K/mm3 (0.1-0.6); Monocytes Percent Auto 12.3 % (2.6-8.5); Neutrophils Absolute Auto 2.1 K/mm3 (1.3-6.7); Neutrophils Percent Auto 48.1 % (45.5-73.1); Platelet Count Result 198 k/mm3 (150-375); Red Blood Count 3.58 M/mm3 (4.2-5.4); Red Cell Distribution Width 13.2 % (11.5-14.5); White Blood Count 4.4 K/mm3 (4.5-10.0)
[2023-06-02 06:32] LABS: Alanine Aminotransferase 7 U/L (6-35); Albumin Level 3.7 g/dL (3.5-5.1); Alkaline Phosphatase 58 U/L (38-126); Anion Gap 11 mmol/L (8-16); Aspartate Amino Transferase 24 U/L (14-36); Bilirubin,Total 0.5 mg/dL (0.2-1.3); Blood Urea Nitrogen 21 mg/dL (7-17); Calcium 9.2 mg/dL (8.4-10.2); Carbon Dioxide 22 mmol/L (22-30); Chloride 107 mmol/L (98-107); Estimated CRCL calculation 22 ml/min; Estimated Glomerular Filt Rate 31; Glucose 97 mg/dL (65-110); Potassium 3.8 mmol/L (3.4-5.0); Sodium 140 mmol/L (137-145)
--- NOTE | 2023-06-02 08:33 | P.PNIM_ITS ---
Progress Note: A&P Assessment and Plan (1) Pneumonia: Code(s): J18.9 - Pneumonia, unspecified organism Status: Acute Assessment and Plan: * Bilateral lower lobe pna vs atelectasis with report of hemoptysis, although patient does not report large volume. I am uncertain of any outpatient treatment for pna and levaquin has been started. * Levaquin to q48 d/t renal function - may increase if renal function improves. * Check procal in am. 06/01/23: * Continue Levaquin * Procalcitonin 0.1 * Check urine strep and urine Legionella 06/02/23: * Change Levaquin to oral * Still awaiting urine strep and urine Legionella to be collected (2) CROW (acute kidney injury): Code(s): N17.9 - Acute kidney failure, unspecified Status: Acute Assessment and Plan: 05/1923: * Low dose hydration overnight, history chf but euvolemic on exam. Close i/o. 06/01/23: * BUN 21, creatinine 1.4, potassium 4.0, bicarb 21 * Baseline creatinine 1.40-1.50 * Continue to trend daily labs * Lasix restarted 06/02/23: * BUN 21, creatinine 1.6 * Hold Lasix * Give 500 mil normal saline bolus today for hydration as she is not eating and drinking as well as she normally does * Continue to trend labs (3) Hx of Parkinson's disease: Code(s): Z86.69 - Personal history of other diseases of the nervous system and sense organs Status: Acute Assessment and Plan: 05/31/23: * Stable, cont. sinemet. 06/01/23: * No change to current treatment plan (4) Alzheimer's dementia: Code(s): G30.9 - Alzheimer's disease, unspecified; F02.80 - Dementia in other diseases classified elsewhere, unspecified severity, without behavioral disturbance, psychotic disturbance, mood disturbance, and anxiety Status: Acute Assessment and Plan: 05/31/23: * Stable and pleasant. Cont. namenda and seroquel. 06/01/23: * No change to current treatment (5) T2DM (type 2 diabetes mellitus): Code(s): E11.9 - Type 2 diabetes mellitus without complications Status: Acute Assessment and Plan: 05/31/23: * On metformin which will be continued. 06/01/23: * Blood sugars ranging 80-101 * Metformin on hold * No change to current treatment 06/02/23: * Blood sugars ranging 97-101 * No change to current treatment plan (6) Cough with hemoptysis: Code(s): R04.2 - Hemoptysis Status: Acute Assessment and Plan: 05/31/23: * No history of travel or living in endemic areas. No incarceration history. No cavitary lesions on imaging. Low likelihood of tuberculosis. 06/01/23: * Start Tessalon Perles and Robitussin DM 06/02/23: * No change to current treatment (7) CHF (congestive heart failure): Code(s): I50.9 - Heart failure, unspecified Status: Acute Assessment and Plan: 05/31/23: * No echo on file, appears euvolemic. On 20mg oral Lasix daily which will be held in light of the crow. 06/01/23: * Lasix restarted 06/02/23: * Hold Lasix due kidney function Time Spent With Patient Time with patient: Greater than 35 minutes Subjective Date/time seen: 06/02/23 08:33 Interval history: Interval history: 06/01/23: This is a 78 year old female who presented to the hospital on 05/31/23 with complaints of hemoptysis. Work up in the hospital included a chest x-ray that shown worsening bilateral lower lung opacities from prior x-ray back on 03/10/23. UA was completed and was n
--- NOTE | 2023-06-02 08:33 | PM.IMPN ---
Progress Note: A&P Assessment and Plan (1) Pneumonia: Code(s): J18.9 - Pneumonia, unspecified organism Status: Acute Assessment and Plan: Bilateral lower lobe pna vs atelectasis with report of hemoptysis, although patient does not report large volume. I am uncertain of any outpatient treatment for pna and levaquin has been started. Levaquin to q48 d/t renal function - may increase if renal function improves. Check procal in am. 06/01/23: Continue Levaquin Procalcitonin 0.1 Check urine strep and urine Legionella 06/02/23: Change Levaquin to oral Still awaiting urine strep and urine Legionella to be collected (2) CROW (acute kidney injury): Code(s): N17.9 - Acute kidney failure, unspecified Status: Acute Assessment and Plan: 05/1923: Low dose hydration overnight, history chf but euvolemic on exam. Close i/o. 06/01/23: BUN 21, creatinine 1.4, potassium 4.0, bicarb 21 Baseline creatinine 1.40-1.50 Continue to trend daily labs Lasix restarted 06/02/23: BUN 21, creatinine 1.6 Hold Lasix Give 500 mil normal saline bolus today for hydration as she is not eating and drinking as well as she normally does Continue to trend labs (3) Hx of Parkinson's disease: Code(s): Z86.69 - Personal history of other diseases of the nervous system and sense organs Status: Acute Assessment and Plan: 05/31/23: Stable, cont. sinemet. 06/01/23: No change to current treatment plan (4) Alzheimer's dementia: Code(s): G30.9 - Alzheimer's disease, unspecified; F02.80 - Dementia in other diseases classified elsewhere, unspecified severity, without behavioral disturbance, psychotic disturbance, mood disturbance, and anxiety Status: Acute Assessment and Plan: 05/31/23: Stable and pleasant. Cont. namenda and seroquel. 06/01/23: No change to current treatment (5) T2DM (type 2 diabetes mellitus): Code(s): E11.9 - Type 2 diabetes mellitus without complications Status: Acute Assessment and Plan: 05/31/23: On metformin which will be continued. 06/01/23: Blood sugars ranging 80-101 Metformin on hold No change to current treatment 06/02/23: Blood sugars ranging 97-101 No change to current treatment plan (6) Cough with hemoptysis: Code(s): R04.2 - Hemoptysis Status: Acute Assessment and Plan: 05/31/23: No history of travel or living in endemic areas. No incarceration history. No cavitary lesions on imaging. Low likelihood of tuberculosis. 06/01/23: Start Tessalon Perles and Robitussin DM 06/02/23: No change to current treatment (7) CHF (congestive heart failure): Code(s): I50.9 - Heart failure, unspecified Status: Acute Assessment and Plan: 05/31/23: No echo on file, appears euvolemic. On 20mg oral Lasix daily which will be held in light of the crow. 06/01/23: Lasix restarted 06/02/23: Hold Lasix due kidney function Time Spent With Patient Time with patient: Greater than 35 minutes Subjective Date/time seen: 06/02/23 08:33 Interval history: Interval history: 06/01/23: This is a 78 year old female who presented to the hospital on 05/31/23 with complaints of hemoptysis. Work up in the hospital included a chest x-ray that shown worsening bilateral lower lung opacities from prior x-ray back on 03/10/23. UA was completed and was negative for any bacteria. WBC 5.9, absolute neutrophils normal. BUN 28, creatinine 1.50 which is up from her baseline of 1.0. Alk phos 133. She was given a dose of Levaquin 750mg and started on IVF. On examination today patient is alert and oriented to self, lying in the bed. VSS, she is afebrile, currently on room air. She denies any pain or discomfort at this time. She also denies any headache, shortness of breath, chest pain, abdominal pain, nausea, vomiting or diarrhea. Labs reveal WBC 4.5, Hgb 10.6, Hct 33.3, Na+ 13
[2023-06-02] MEDS: BENZONATATE 100 MG CAPSULE 200 MG PO ×2 (08:47→13:12)
[2023-06-02] MEDS: CARBIDOPA/LEVODOPA 10/100 MG TABLET 1 TABLET PO ×3 (08:48→16:57)
[2023-06-02] MEDS: MIRTAZAPINE 7.5 MG TABLET PO (08:48)
[2023-06-02] MEDS: MEMANTINE HCL XR 28 MG CAP PO (08:48)
[2023-06-02] MEDS: DIVALPROEX SODIUM SPRINKLE 125 MG CAP.DR 625 MG PO ×2 (08:48→16:57)
[2023-06-02] MEDS: PRIMIDONE 250 MG TABLET PO ×2 (08:48→21:31)
[2023-06-02] MEDS: DOCUSATE SODIUM 100 MG CAPSULE PO ×2 (08:48→16:57)
[2023-06-02] MEDS: polyethylene glycoL 3350 17 GM POWD.PACK PO (08:49)
[2023-06-02] MEDS: HEPARIN SODIUM 5,000 UNITS/ML VIAL 5000 UNITS SUB-Q ×2 (08:49→21:30)
[2023-06-02] MEDS: levoFLOXacin 750 MG TABLET PO (13:12)
[2023-06-02] MEDS: SODIUM CHLORIDE 0.9% IV 500 ML IV CONT (13:12)
[2023-06-02 14:35] VITALS: BP 119/56; PULSE 73; RESP 18; TEMP 36; O2SAT 94
[2023-06-02 19:30] VITALS: BP 121/99; PULSE 87; RESP 18; TEMP 36.7; O2SAT 94
[2023-06-02] MEDS: QUEtiapine FUMARATE 100 MG TABLET PO (21:31)
[2023-06-02] MEDS: QUEtiapine FUMARATE 25 MG TABLET 50 MG PO (21:31)
[2023-06-03 06:00] VITALS: BP 98/47; PULSE 77; RESP 18; TEMP 36.8; O2SAT 97
[2023-06-03] MEDS: LEVOTHYROXINE SODIUM 50 MCG TABLET PO (06:01)
[2023-06-03 06:17] LABS: Basophils Percent Auto 0.6 % (0.2-1.2); Eosinophils Absolute Auto 0.2 K/mm3 (0-0.3); Eosinophils Percent Auto 4.1 % (0-4.4); Hematocrit 32.9 % (37.0-47.0); Immature Granulocyte Absolute 0.07 K/mm3 (0.00-0.031); Immature Granulocyte Percent A 1.5 % (0-0.5); Lymphocytes Absolute Auto 1.68 K/mm3 (0.9-3.2); Mean Corpuscular HGB Conc 33.4 g/dl (32-36); Mean Corpuscular Hemoglobin 33.1 pg (26-34); Mean Corpuscular Volume 99.1 fl (80-100); Mean Platelet Volume 9.6 fl (7.4-10.4); Monocytes Absolute Auto 0.7 K/mm3 (0.1-0.6); Monocytes Percent Auto 13.9 % (2.6-8.5); Neutrophils Absolute Auto 2.1 K/mm3 (1.3-6.7); Neutrophils Percent Auto 43.9 % (45.5-73.1); Platelet Count Result 189 k/mm3 (150-375); Red Blood Count 3.32 M/mm3 (4.2-5.4); Red Cell Distribution Width 13.1 % (11.5-14.5); White Blood Count 4.7 K/mm3 (4.5-10.0)
[2023-06-03 06:28] LABS: Alanine Aminotransferase 12 U/L (6-35); Albumin Level 3.4 g/dL (3.5-5.1); Alkaline Phosphatase 50 U/L (38-126); Anion Gap 6 mmol/L (8-16); Aspartate Amino Transferase 23 U/L (14-36); Bilirubin,Total 0.4 mg/dL (0.2-1.3); Blood Urea Nitrogen 22 mg/dL (7-17); Calcium 8.9 mg/dL (8.4-10.2); Carbon Dioxide 24 mmol/L (22-30); Chloride 110 mmol/L (98-107); Estimated CRCL calculation 22 ml/min; Estimated Glomerular Filt Rate 31; Glucose 103 mg/dL (65-110); Sodium 140 mmol/L (137-145)
[2023-06-03] MEDS: BENZONATATE 100 MG CAPSULE 200 MG PO ×2 (09:00→12:13)
[2023-06-03] MEDS: DIVALPROEX SODIUM SPRINKLE 125 MG CAP.DR 625 MG PO (09:00)
[2023-06-03] MEDS: polyethylene glycoL 3350 17 GM POWD.PACK PO (09:01)
[2023-06-03] MEDS: CARBIDOPA/LEVODOPA 10/100 MG TABLET 1 TABLET PO ×2 (09:01→12:13)
[2023-06-03] MEDS: MIRTAZAPINE 7.5 MG TABLET PO (09:01)
[2023-06-03] MEDS: PRIMIDONE 250 MG TABLET PO (09:01)
[2023-06-03] MEDS: HEPARIN SODIUM 5,000 UNITS/ML VIAL 5000 UNITS SUB-Q (09:01)
[2023-06-03] MEDS: MEMANTINE HCL XR 28 MG CAP PO (09:01)
[2023-06-03] MEDS: DOCUSATE SODIUM 100 MG CAPSULE PO (09:01)
--- NOTE | 2023-06-03 11:54 | PM.DS ---
DS: Admitting Diagnosis Discharge Date 06/03/23 Admitting Diagnosis Pneumonia DS: Discharge Diagnosis Discharge Diagnosis (1) Pneumonia: Code(s): J18.9 - Pneumonia, unspecified organism Status: Acute (2) CROW (acute kidney injury): Code(s): N17.9 - Acute kidney failure, unspecified Status: Acute (3) Hx of Parkinson's disease: Code(s): Z86.69 - Personal history of other diseases of the nervous system and sense organs Status: Acute (4) Alzheimer's dementia: Code(s): G30.9 - Alzheimer's disease, unspecified; F02.80 - Dementia in other diseases classified elsewhere, unspecified severity, without behavioral disturbance, psychotic disturbance, mood disturbance, and anxiety Status: Acute (5) T2DM (type 2 diabetes mellitus): Code(s): E11.9 - Type 2 diabetes mellitus without complications Status: Acute (6) Cough with hemoptysis: Code(s): R04.2 - Hemoptysis Status: Acute (7) CHF (congestive heart failure): Code(s): I50.9 - Heart failure, unspecified Status: Acute DS: Summary Hospital Course Hospital Course: This is a 78-year-old female with a past medical history of dementia, Parkinson's, diabetes, COPD and CHF that presented to the ED on 05/31/2023 due to hemoptysis. Patient is poor historian unable to tell much information about current illness. She was recently diagnosed with pneumonia as an outpatient. She had had some difficulty breathing over the past several days prior to presentation. Initial workup revealed a normal white blood cell count. Chest x-ray showed worsened airspace opacities consistent with atelectasis versus pneumonia. Patient was started on Levaquin IV. Patient was also found to have elevated BUN and creatinine of 28/1.5. Patient was originally started on IV fluids with continuation of home meds. IV fluids were discontinued due to kidney function not improving. Over the course of 4 days patient's BUN and creatinine in remained in the same range and when looking back on previous labs it looks to be that this could be her baseline. Would recommend follow-up with her primary care and repeat labs in 1 week. She has a history of diabetes which could contribute to her worsening kidney function. Time Spent with Patient Time attestation: Total time spent providing and/or coordinating discharge services: Exam Narrative: GENERAL: Comfortable, no acute distress HENMT: moist mucous membranes EYES: EOM intact b/l NECK: no lymphadenopathy RESPIRATORY: clear to auscultation CARDIO: RRR GI: soft, nontender, bowel sounds present SKIN: no rashes EXTREMITIES: no edema, redness or tenderness DS: Data Data Completed and Pending Labs on day of discharge: Labs from last 24 hours 06/03/23 06/02/23 05:56 17:04 WBC 4.7 RBC 3.32 L Hgb 11.0 L Hct 32.9 L MCV 99.1 MCH 33.1 MCHC 33.4 RDW 13.1 Plt Count 189 MPV 9.6 Immature Gran % (Auto) 1.5 H Neut % (Auto) 43.9 L Lymph % (Auto) 36.0 [facility] % (Auto) 13.9 H Eos % (Auto) 4.1 Baso % (Auto) 0.6 Lymph # (Auto) 1.68 [facility] # (Auto) 0.7 H Eos # (Auto) 0.2 Baso # (Auto) 0.0 Abs Immat Gran (auto) 0.07 H Absolute Neuts (auto) 2.1 Absolute Nucleated RBC 0.0 Nucleated RBC % 0.0 Sodium 140 Potassium 4.0 Chloride 110 H Carbon Dioxide 24 Anion Gap 6 L BUN 22 H Creatinine 1.60 H Estim Creat Clear Calc 22 Estimated GFR 31 L Glucose 103 Calcium 8.9 Total Bilirubin 0.4 AST 23 ALT 12 Alkaline Phosphatase 50 Total Protein 7.0 Albumin 3.4 L Ur L.pneumophila Ag Pending Urine Pneumococcal Ag Pending Discharge Plan Discharge Attending physician on discharge: Harry Daigle Discharging Clinician: Kitty Goddard Patient Disposition: [facility]/Asst Living Activity: as tolerated Diet: as tolerated Discharge Instructions: Take dose of Levaquin 750 mg tomorrow. After
[2023-06-03 12:42] LABS: SARS-CoV-2 RNA PCR Negative (Negative)
[2023-06-04 21:45] LABS: Pneumococcal Antigen Urine Not Detected (Not Detected)
[2023-06-05 01:50] LABS: Legionella pneumophila Ag Ur Not Detected (Not Detected)
== END 2023-06-03 14:19 | DRG 190 ==
LOC: ANHED 12:54 → ANH2MED 14:09
PROVIDERS: Nurse Practitioner Acute Care; Nurse Practitioner Family; Admitting Provider General Practice; Emergency Provider Emergency Medicine; PCP Internal Medicine; Visit Provider Internal Medicine Critical Care Medicine
DX: J44.0 Chronic obstructive pulmonary disease with (acute) lower respiratory infection (principal); J18.9 Pneumonia, unspecified organism; N17.9 Acute kidney failure, unspecified; I11.0 Hypertensive heart disease with heart failure; I50.9 Heart failure, unspecified; E78.00 Pure hypercholesterolemia, unspecified; E03.9 Hypothyroidism, unspecified; E11.9 Type 2 diabetes mellitus without complications; K21.9 Gastro-esophageal reflux disease without esophagitis; K44.9 Diaphragmatic hernia without obstruction or gangrene; M19.90 Unspecified osteoarthritis, unspecified site; G20.A1 Parkinson's disease without dyskinesia, without mention of fluctuations; G30.9 Alzheimer's disease, unspecified; F02.80 Dementia in other diseases classified elsewhere, unspecified severity, without behavioral disturbance, psychotic disturbance, mood disturbance, and anxiety; F41.9 Anxiety disorder, unspecified; F32.A Depression, unspecified; F25.9 Schizoaffective disorder, unspecified; Z20.822 Contact with and (suspected) exposure to COVID-19; Z11.52 Encounter for screening for COVID-19; Z79.82 Long term (current) use of aspirin
CPT/HCPCS: 36415; 71045; 80053; 81003; 82948; 83735; 84145; 85025; 85027; 87449; 87635; 87637; 87899; 93005; 96365; 96366; 97161; 97165; 99285; A9270; J1644; J1956; J7030; J7040

== ENCOUNTER 2023-12-10 09:37 | Emergency (ER) | payer MEDICARE, MEDICAID, SELFPAY ==
--- NOTE | ~2023-12-10 | US_ITS ---
EXAMINATION: US soft tissue UE LT DATE: 12/10/2023 11:36 INDICATION: Left upper limb swelling. TECHNIQUE: Multiple grayscale and Doppler ultrasound images of the left upper limb were obtained. COMPARISON: None FINDINGS: There is prominent subcutaneous fat in the left upper limb in the patient's area of concern . IMPRESSION: 1. Prominent subcutaneous fat in the left upper limb in the patient's area of concern. No well-define d margins to suggest a lipoma. Reviewed, dictated and finalized at location A. IMPRESSION: 1. Prominent subcutaneous fat in the left upper limb in the patient's area of c oncern. No well-defined margins to suggest a lipoma.
[2023-12-10 09:37] VITALS: BP 115/93; PULSE 77; RESP 16; TEMP 36.2; O2SAT 98
--- NOTE | 2023-12-10 11:21 | ED.SKABFB ---
HPI - Skin/Abscess/Foreign Bdy General Chief complaint: Skin/Abscess/Foreign Body Stated complaint: knot on arm Time Seen by Provider: 12/10/23 10:33 Source: patient and EMS Mode of arrival: EMS Limitations: dementia History of Present Illness HPI narrative: This is a 78-year-old female that presents to the emergency department for left arm swelling. Reports they noted an area of swelling to her left upper arm at the facility and sent her in for further evaluation. Patient unable to give any history due to dementia. Related Data Home Medications Medication Instructions Recorded Confirmed acetaminophen 325 mg tablet 650 mg PO Q4H PRN Pain (Scale 09/19/21 05/31/23 Score 1-3) fenofibrate micronized 67 mg 67 mg PO DAILY 09/19/21 05/31/23 capsule memantine 28 mg capsule 28 mg PO DAILY 09/19/21 05/31/23 sprinkle,extended release 24hr (Namenda XR) mirtazapine 7.5 mg tablet 7.5 mg PO DAILY 09/19/21 05/31/23 carbidopa 10 mg-levodopa 100 mg 1 tablet PO TID 03/10/23 05/31/23 tablet cholecalciferol (vitamin D3) 1,250 1,250 mcg PO MONTHLY 03/10/23 05/31/23 mcg (50,000 unit) capsule divalproex 125 mg capsule,delayed 625 mg PO BID 03/10/23 05/31/23 release sprinkle docusate sodium 100 mg capsule 100 mg PO BID 03/10/23 05/31/23 ferrous sulfate 324 mg (65 mg 325 mg PO TID 03/10/23 05/31/23 iron) tablet,delayed release furosemide 20 mg tablet 20 mg PO DAILY 03/10/23 05/31/23 guaifenesin 100 mg/5 mL oral liquid 300 mg PO Q6H PRN Cough 03/10/23 05/31/23 magnesium hydroxide 400 mg/5 mL 30 ml PO DAILY PRN Constipation 03/10/23 05/31/23 oral suspension (Milk of Magnesia) metformin 500 mg tablet 500 mg PO DAILY 03/10/23 05/31/23 polyethylene glycol 3350 17 gram 17 g PO DAILY 03/10/23 05/31/23 oral powder packet (Miralax) primidone 250 mg tablet 250 mg PO Q12H 03/10/23 05/31/23 quetiapine 100 mg tablet (Seroquel) 150 mg PO QHS 03/10/23 05/31/23 levothyroxine 50 mcg tablet 50 mcg PO DAILY 05/31/23 05/31/23 potassium chloride 10 mEq 10 meq PO DAILY 05/31/23 05/31/23 tablet,extended release Allergies Allergy/AdvReac Type Severity Reaction Status Date / Time DANIEL Inhibitors Allergy Severe Anaphylactic Verified 12/10/23 09:44 Shock Penicillins Allergy Unknown Other Verified 12/10/23 09:44 Review of Systems Review of Systems: ROS unobtainable: Yes unobtainable due to medical condition [facility] Past Medical History Medical History (Updated 12/10/23 @ 12:30 by Melany Dupont PA-C) Acute hypoxemic respiratory failure due to COVID-19 Alzheimer disease Anemia Anxiety Arthritis CHF (congestive heart failure) COPD (chronic obstructive pulmonary disease) COVID-19 Dementia Depression DM (diabetes mellitus) GERD (gastroesophageal reflux disease) H/O: HTN (hypertension) History of degenerative joint disease History of GI bleed History of pneumonia Hx of esophagitis Hx of hemorrhoids Hx of hiatal hernia Hx of Parkinson's disease Hx of seizure disorder Hx of transient ischemic attack (TIA) Hx: UTI (urinary tract infection) Hypercholesteremia Hypothyroid Psychoses Schizo affective schizophrenia Urinary tract infection due to extended-spectrum beta lactamase (ESBL) producing Escherichia coli Surgical History Surgical History Surgical history unknown Social History Social History (Updated 05/31/23 @ 14:33 by Rob Orellana APRN) Smoking packs per day: 0.5 Smoking cigarettes per day: 10.0 Smoking status: Current every day smoker Alcohol intake: never Substance use: never Substance use type: does not use Lack of Transportation: No Lack of Food: Never True Current Housing: I Have Housing Concerned About Future Housing: No Difficulty Paying Gas/Electric Bills: No Difficulty Paying for Meds: No Currently Unemployed: No Education: Don't Know Difficulty w/ Childcare or Family Care: No Spiritual care concerns: No
[2023-12-10 11:29] VITALS: PULSE 72; RESP 16; O2SAT 94
--- NOTE | 2023-12-10 14:09 | PC.NURSE ---
report called to facility, spoke with Sara
[2023-12-10 14:10] VITALS: BP 142/88; PULSE 74; RESP 16; O2SAT 98
== END 2023-12-10 14:12 ==
PROVIDERS: Emergency Provider Physician Assistant; PCP Internal Medicine
DX: D17.22 Benign lipomatous neoplasm of skin and subcutaneous tissue of left arm (principal); G30.9 Alzheimer's disease, unspecified; F02.80 Dementia in other diseases classified elsewhere, unspecified severity, without behavioral disturbance, psychotic disturbance, mood disturbance, and anxiety; I50.9 Heart failure, unspecified; I11.0 Hypertensive heart disease with heart failure; J44.9 Chronic obstructive pulmonary disease, unspecified; E11.9 Type 2 diabetes mellitus without complications; G20.A1 Parkinson's disease without dyskinesia, without mention of fluctuations; K21.9 Gastro-esophageal reflux disease without esophagitis; K44.9 Diaphragmatic hernia without obstruction or gangrene; F20.9 Schizophrenia, unspecified; F41.9 Anxiety disorder, unspecified; F32.A Depression, unspecified; F17.210 Nicotine dependence, cigarettes, uncomplicated; Z87.01 Personal history of pneumonia (recurrent); Z86.16 Personal history of COVID-19; Z87.440 Personal history of urinary (tract) infections; Z86.73 Personal history of transient ischemic attack (TIA), and cerebral infarction without residual deficits; Z86.2 Personal history of diseases of the blood and blood-forming organs and certain disorders involving the immune mechanism; Z79.899 Other long term (current) drug therapy; Z79.84 Long term (current) use of oral hypoglycemic drugs
CPT/HCPCS: 76882; 99284

== ENCOUNTER 2023-12-14 19:39 | Emergency (ER) | payer MEDICARE, MEDICAID, SELFPAY ==
--- NOTE | ~2023-12-14 | XR_ITS ---
EXAMINATION: XR chest 1V Exam Date/Time: 12/14/2023 20:50 CDT HISTORY: AMS Comparison: 05/31/2023. RESULT: Lines, tubes, and devices: None. Lungs and pleura: Rightward rotation. Senescent change and minimal bibasilar scar/atelectasis. Cardiomediastinal silhouette: Stable. Other: No acute osseous or upper abdominal finding. IMPRESSION: No acute cardiopulmonary process. Reviewed, dictated and finalized at location K.
--- NOTE | ~2023-12-14 | XR_ITS ---
EXAM: XR humerus LT DATE: 12/14/2023 21:03 HISTORY: ST swelling . COMPARISON: None available. FINDINGS: Decreased mineralization. No fracture or dislocation. No lytic or blastic lesion. Joint sp aces are maintained. No erosion or periosteal change. Large, fat density swelling in the soft tissues of the lateral upper arm with minimal stranding. IMPRESSION: No acute osseous finding in the left humerus. Lateral upper arm swelling, the absence of signs of infection, may represent hematoma or lipoma. Correlate with history and if chronic, consider nonemergent ultrasound of the soft tissues. Reviewed, dictated and finalized at location K. IMPRESSION: No acute osseous finding in the left humerus. Lateral upper arm swe lling, the absence of signs of infection, may represent hematoma or lipoma. Cor relate with history and if chronic, consider nonemergent ultrasound of the soft tissues.
[2023-12-14 19:41] VITALS: BP 110/63; PULSE 77; RESP 16; TEMP 36.2; O2SAT 92
--- NOTE | 2023-12-14 19:49 | ECG_ITS ---
[facility] [address] Test Date: 2023-12-14 Pat Name: Iliana Gutierrez Department: Room: Gender: F Babcock Tester: : 1945 Requested By: Jocelyn Lehman Order Number: [id number] Santiago MD: Luis Patel M.D. Measurements Intervals [place] Rate: 77 P: 46 MI: 147 QRS: 9 QRSD: 93 T: 32 QT: 394 QTc: 448 Interpretive Statements SINUS RHYTHM No previous ECG available for comparison Electronically Signed On 12-15-2023 14:17:12 CDT by Luis Patel M.D.
[2023-12-14 20:21] LABS: Basophils Absolute Auto 0.1 K/mm3 (0.0-0.1); Basophils Percent Auto 1.2 % (0.2-1.2); Eosinophils Absolute Auto 0.2 K/mm3 (0-0.3); Eosinophils Percent Auto 3.7 % (0-4.4); Hematocrit 44.1 % (37.0-47.0); Hemoglobin 13.7 g/dL (12.0-15.0); Immature Granulocyte Absolute 0.15 K/mm3 (0.00-0.031); Immature Granulocyte Percent A 2.5 % (0-0.5); Lymphocytes Absolute Auto 1.91 K/mm3 (0.9-3.2); Lymphocytes Percent Auto 32.1 % (18.3-44.2); Mean Corpuscular HGB Conc 31.1 g/dl (32-36); Mean Corpuscular Hemoglobin 30.7 pg (26-34); Mean Corpuscular Volume 98.9 fl (80-100); Mean Platelet Volume 9.5 fl (7.4-10.4); Monocytes Absolute Auto 0.8 K/mm3 (0.1-0.6); Monocytes Percent Auto 12.6 % (2.6-8.5); Neutrophils Absolute Auto 2.9 K/mm3 (1.3-6.7); Neutrophils Percent Auto 47.9 % (45.5-73.1); Platelet Count Result 256 k/mm3 (150-375); Red Blood Count 4.46 M/mm3 (4.2-5.4); Red Cell Distribution Width 13.7 % (11.5-14.5)
[2023-12-14 20:26] LABS: Appearance Urine Clear (Clear); Bacteria Urine None Seen /hpf; Bilirubin Urine Negative (Negative); Blood Urine Negative (Negative); Color Urine Yellow (Yellow); Glucose Urine UA Negative (Negative); Ketones Urine Negative (Negative); Leukocyte Esterase Ur Negative LEU/UL (Negative); Nitrate Urine Negative (Negative); Protein Urine 1+ mg/dL (Negative); RBC Urine 0-2 /hpf (0-2); Specific Grav Ur 1.018 (1.001-1.035); Squamous Epithelial Cell Urine None Seen /hpf (Few); WBC Urine 0-5 /hpf (0-3); pH Urine 5.5 (5.0-9.0)
[2023-12-14 20:31] LABS: Alanine Aminotransferase 9 U/L (6-35); Albumin Level 4.2 g/dL (3.5-5.1); Alkaline Phosphatase 75 U/L (38-126); Anion Gap 8 mmol/L (4-12); Aspartate Amino Transferase 36 U/L (14-36); Bilirubin,Total 0.7 mg/dL (0.2-1.3); Blood Urea Nitrogen 27 mg/dL (7-17); Calcium 9.3 mg/dL (8.4-10.2); Carbon Dioxide 27 mmol/L (22-30); Chloride 106 mmol/L (98-107); Estimated CRCL calculation 22 ml/min; Estimated Glomerular Filt Rate 26; Glucose 132 mg/dL (65-110); INR 1.3; Potassium 3.9 mmol/L (3.4-5.0); Prothrombin Time 16.2 Seconds (11.1-14.7); Sodium 141 mmol/L (137-145)
[2023-12-14 20:33] LABS: Partial Thromboplastin Time 39.8 Seconds (22.3-36.8)
--- NOTE | 2023-12-14 20:38 | ED.AMS ---
HPI - Altered Mental Status General Chief Complaint: Altered Mental Status Stated Complaint: AMS Time Seen by Provider: 12/14/23 20:33 History of Present Illness HPI narrative: Patient is a 78-year-old female who presents to the emergency department this evening due to concern for altered mental status. EMS report states that the [facility] was concerned that she is not as fiesty as she normally is. patient normally is yelling at the staff and cursing at them and today she was not doing that. Patient's normal baseline is alert and oriented times 1-2 and she is currently at her baseline. Patient is moving all 4 extremities spontaneously and during my examination did yell and curse at me because my hands are cold. patient also has some soft tissue swelling to her left upper extremity which feels like a lipoma. No additional symptoms or concerns at this time. Remainder of the history of present illness and review of system is limited secondary to patient's poor historian status. Related Data Home Medications Medication Instructions Recorded Confirmed acetaminophen 325 mg tablet 650 mg PO Q4H PRN Pain (Scale 09/19/21 05/31/23 Score 1-3) fenofibrate micronized 67 mg 67 mg PO DAILY 09/19/21 05/31/23 capsule memantine 28 mg capsule 28 mg PO DAILY 09/19/21 05/31/23 sprinkle,extended release 24hr (Namenda XR) mirtazapine 7.5 mg tablet 7.5 mg PO DAILY 09/19/21 05/31/23 carbidopa 10 mg-levodopa 100 mg 1 tablet PO TID 03/10/23 05/31/23 tablet cholecalciferol (vitamin D3) 1,250 1,250 mcg PO MONTHLY 03/10/23 05/31/23 mcg (50,000 unit) capsule divalproex 125 mg capsule,delayed 625 mg PO BID 03/10/23 05/31/23 release sprinkle docusate sodium 100 mg capsule 100 mg PO BID 03/10/23 05/31/23 ferrous sulfate 324 mg (65 mg 325 mg PO TID 03/10/23 05/31/23 iron) tablet,delayed release furosemide 20 mg tablet 20 mg PO DAILY 03/10/23 05/31/23 guaifenesin 100 mg/5 mL oral liquid 300 mg PO Q6H PRN Cough 03/10/23 05/31/23 magnesium hydroxide 400 mg/5 mL 30 ml PO DAILY PRN Constipation 03/10/23 05/31/23 oral suspension (Milk of Magnesia) metformin 500 mg tablet 500 mg PO DAILY 03/10/23 05/31/23 polyethylene glycol 3350 17 gram 17 g PO DAILY 03/10/23 05/31/23 oral powder packet (Miralax) primidone 250 mg tablet 250 mg PO Q12H 03/10/23 05/31/23 quetiapine 100 mg tablet (Seroquel) 150 mg PO QHS 03/10/23 05/31/23 levothyroxine 50 mcg tablet 50 mcg PO DAILY 05/31/23 05/31/23 potassium chloride 10 mEq 10 meq PO DAILY 05/31/23 05/31/23 tablet,extended release Allergies Allergy/AdvReac Type Severity Reaction Status Date / Time DANIEL Inhibitors Allergy Severe Anaphylactic Verified 12/10/23 09:44 Shock Penicillins Allergy Unknown Other Verified 12/10/23 09:44 Review of Systems Review of Systems: Unable to obtain a full review of systems secondary to patient's poor historian status. [facility] Past Medical History Medical History Acute hypoxemic respiratory failure due to COVID-19 Alzheimer disease Anemia Anxiety Arthritis CHF (congestive heart failure) COPD (chronic obstructive pulmonary disease) COVID-19 Dementia Depression DM (diabetes mellitus) GERD (gastroesophageal reflux disease) H/O: HTN (hypertension) History of degenerative joint disease History of GI bleed History of pneumonia Hx of esophagitis Hx of hemorrhoids Hx of hiatal hernia Hx of Parkinson's disease Hx of seizure disorder Hx of transient ischemic attack (TIA) Hx: UTI (urinary tract infection) Hypercholesteremia Hypothyroid Psychoses Schizo affective schizophrenia Urinary tract infection due to extended-spectrum beta lactamase (ESBL) producing Escherichia coli Surgical History Surgical History Surgical history unknown Social History Social History Smoking packs per day: 0.
[2023-12-14 20:42] LABS: Add Urine Microscopic? YES
[2023-12-14 21:16] VITALS: BP 132/96; PULSE 76; RESP 20; TEMP 36.4; O2SAT 93
[2023-12-14 22:19] VITALS: BP 119/70; PULSE 78; RESP 16; TEMP 36.7; O2SAT 92
[2023-12-14 23:22] VITALS: BP 119/63; PULSE 77; RESP 19; O2SAT 90
== END 2023-12-15 01:04 ==
PROVIDERS: Emergency Medicine; Emergency Provider Emergency Medicine; PCP Internal Medicine
DX: G30.9 Alzheimer's disease, unspecified (principal); F02.80 Dementia in other diseases classified elsewhere, unspecified severity, without behavioral disturbance, psychotic disturbance, mood disturbance, and anxiety; F41.9 Anxiety disorder, unspecified; I50.9 Heart failure, unspecified; E11.9 Type 2 diabetes mellitus without complications; K21.9 Gastro-esophageal reflux disease without esophagitis; I11.0 Hypertensive heart disease with heart failure; G20.A1 Parkinson's disease without dyskinesia, without mention of fluctuations; E78.00 Pure hypercholesterolemia, unspecified; Z86.73 Personal history of transient ischemic attack (TIA), and cerebral infarction without residual deficits; E03.9 Hypothyroidism, unspecified; F17.210 Nicotine dependence, cigarettes, uncomplicated
CPT/HCPCS: 36415; 71045; 73060; 80053; 81001; 85025; 85610; 85730; 93005; 99284